=== PATIENT | female | born 1955 | race Caucasian/White ===

== ENCOUNTER → 2017-11-14 07:07 | Outpatient (CLI) | payer OTHER, SELFPAY ==
[2017-11-14 09:30] LABS: Add Manual Diff / Slide Review NO; Basophils Percent Auto 1.2 % (0-2); Eosinophils Percent Auto 2.4 % (2-4); Hematocrit 40.5 % (36-46); Hemoglobin 13.7 g/dL (12.0-16.0); Lymphocytes Percent Auto 44.3 % (25-40); Mean Corpuscular HGB Conc 33.9 % (30-36); Mean Corpuscular Hemoglobin 31.8 PG (26-34); Mean Corpuscular Volume 93.9 fL (80-100); Monocytes Percent Auto 9.9 % (3-14); Neutrophils Absolute Auto 3200 /uL (3000-5900); Neutrophils Percent Auto 42.2 % (50-75); Platelet Count 89 X10^3/uL (150-400); Red Blood Cell Count 4.31 X10^6/uL (4.0-5.2); Red Cell Distribution Width 14.6 % (11.6-14.8); White Blood Cell Count 7.5 X10^3/uL (4.5-11.0)
== END ==
PROVIDERS: PCP Internal Medicine; Visit Provider Nurse Practitioner Gerontology
DX: D69.3 Immune thrombocytopenic purpura (principal)
CPT/HCPCS: 36415; 85025

== ENCOUNTER → 2017-11-21 07:10 | Outpatient (CLI) | payer OTHER, SELFPAY ==
[2017-11-21 07:42] LABS: Alanine Aminotransferase 25 IU/L (9-52); Aspartate Aminotransferase 16 IU/L (14-36); Cholesterol 161 mg/dL (140-199); HDL Cholesterol 64 mg/dL (40-60); LDL Cholesterol Calculated 83 mg/dL (<100); Triglycerides 72 mg/dL (35-150)
[2017-11-21 08:10] LABS: TSH w/ Reflex to FT4 0.77 uIU/mL (0.47-4.68)
[2017-11-21 12:47] LABS: BUN Creatinine Ratio 21.3 (6-22); Blood Urea Nitrogen 17 mg/dL (7-17); Calcium 9.2 mg/dL (8.4-10.2); Carbon Dioxide 26 mmol/L (22-32); Chloride 103 mmol/L (98-107); Estimated Glomerular Filt Rate > 60.0 mL/min (>60); Glucose 100 mg/dL (80-110); HEMOLYSIS < 15 (0-50); Potassium 4.6 mmol/L (3.4-5.1); Sodium 140 mmol/L (137-145)
== END ==
PROVIDERS: PCP Internal Medicine; Visit Provider Internal Medicine
DX: I10 Essential (primary) hypertension (principal); E78.00 Pure hypercholesterolemia, unspecified; E03.9 Hypothyroidism, unspecified
CPT/HCPCS: 36415; 80048; 80061; 84443; 84450; 84460

== ENCOUNTER → 2018-02-03 13:51 | Outpatient (CLI) | payer OTHER, SELFPAY ==
[2018-02-03 14:27] LABS: Add Manual Diff / Slide Review NO; Eosinophils Percent Auto 0.9 % (2-4); Hematocrit 40.5 % (36-46); Hemoglobin 13.7 g/dL (12.0-16.0); Lymphocytes Percent Auto 41.6 % (25-40); Mean Corpuscular HGB Conc 33.9 % (30-36); Mean Corpuscular Hemoglobin 32.4 PG (26-34); Mean Corpuscular Volume 95.5 fL (80-100); Monocytes Percent Auto 8.2 % (3-14); Neutrophils Absolute Auto 4100 /uL (3000-5900); Neutrophils Percent Auto 48.3 % (50-75); Red Blood Cell Count 4.24 X10^6/uL (4.0-5.2); Red Cell Distribution Width 14.2 % (11.6-14.8); White Blood Cell Count 8.5 X10^3/uL (4.5-11.0)
== END ==
PROVIDERS: Family Provider Internal Medicine; PCP Internal Medicine; Visit Provider Nurse Practitioner Gerontology
DX: D69.3 Immune thrombocytopenic purpura (principal)
CPT/HCPCS: 36415; 85025

== ENCOUNTER → 2018-03-25 11:11 | Outpatient (CLI) | payer OTHER, SELFPAY ==
--- NOTE | 2018-03-25 11:17 | DI.US.S_ITS ---
PROCEDURE: US CAROTID DOPPLER BI INDICATIONS: neck pain and C-V disease and smoker TECHNIQUE: Color and pulse Doppler interrogation was performed of both carotid systems, with image documentation and velocity measurements. COMPARISON: None. FINDINGS: Stenosis calculations are based on SRU (Society of Radiologists in Ultrasound) criteria. Right side: Brachial blood pressure: 110/74 mm Hg. Common carotid artery peak systolic velocity: 95 cm/sec. Internal carotid artery peak systolic velocity: 92 cm/sec. Internal carotid artery end diastolic velocity: 20 cm/sec. External carotid artery peak systolic velocity: 81 cm/sec. ICA/CCA peak systolic ratio: 1.0. Cordero scale imaging description: Minimal scattered plaque. Percent internal carotid artery stenosis: Less than 50%. Vertebral artery: Flow direction is antegrade. Left side: Brachial blood pressure: 113/76 mm Hg. Common carotid artery peak systolic velocity: 73 cm/sec. Internal carotid artery peak systolic velocity: 109 cm/sec. Internal carotid artery end diastolic velocity: 40 cm/sec. External carotid artery peak systolic velocity: 69 cm/sec. ICA/CCA peak systolic ratio: 1.5. Cordero scale imaging description: Minimal scattered plaque. Percent internal carotid artery stenosis: Less than. Vertebral artery: Flow direction is antegrade. IMPRESSION: Less than 50% bilateral internal carotid artery stenosis. Dictated by: Rupesh Weber [facility] Interpreted: Harsh Ochoa MD on 03/25/2018 at 14:40 Approved by: Harsh Ochoa M.D. on 03/25/2018 at 17:18
== END ==
PROVIDERS: PCP Internal Medicine; Visit Provider Family Medicine
DX: I65.23 Occlusion and stenosis of bilateral carotid arteries (principal); R51 Headache; M54.2 Cervicalgia; F17.200 Nicotine dependence, unspecified, uncomplicated
CPT/HCPCS: 93880

== ENCOUNTER → 2018-03-26 14:43 | Outpatient (CLI) | payer OTHER, SELFPAY ==
--- NOTE | 2018-03-26 14:48 | DI.MRI.S_ITS ---
PROCEDURE: MR HEAD/BRAIN WO CON INDICATIONS: headaches TECHNIQUE: Non-contrast axial T1 spin echo, axial T2 fast spin echo, sagittal and axial FLAIR, coronal T2 fast spin echo, axial gradient echo, axial diffusion and ADC through the brain. COMPARISON: [facility], MR, MR ANGIO HEAD WO CON, 03/26/2018, 14:55. CT, HEAD WITHOUT CONTRAST, 02/10/2007, 10:38. FINDINGS: Image quality: Excellent. CSF spaces: Ventricles appear symmetric in size and shape. Basal cisterns are patent. No extra-axial fluid collections. Brain: No intracranial bleeds or mass effects. There is cerebral volume loss for age. There are periventricular and deep white matter chronic small vessel ischemic changes. Brainstem demonstrates patchy areas of hyperintensity within the [place]. Diffusion-weighted images show no acute ischemic insults. No chronic ischemic insults. Normal intravascular flow voids are present. Skull and face: Calvarial bone marrow is normal in signal. Orbits are normal. Sinuses: Sinuses and mastoids are clear. IMPRESSION: 1. No acute intracranial process. 2. Mild atrophy and chronic microvascular ischemic changes. Dictated by: Patti Da Silva M.D. on 03/26/2018 at 15:38 Approved by: Patti Da Silva M.D. on 03/26/2018 at 15:40
--- NOTE | 2018-03-26 14:48 | DI.MRI.S_ITS ---
PROCEDURE: MR ANGIO HEAD WO CON INDICATIONS: headaches TECHNIQUE: Noncontrast axial 3-D [id number] MR angiogram, with 3-dimensional maximum intensity projection (MIP) reformats of the internal carotid arteries and posterior circulation then performed. COMPARISON: [facility], , MR HEAD/BRAIN WO CON, 03/26/2018, 15:05. FINDINGS: Image quality: Excellent. Anterior circulation: Intracranial internal carotid arteries demonstrate normal size and intraluminal flow signal. The flow within the paired anterior cerebral arteries is normal and symmetric. The flow within the middle cerebral arteries is normal and symmetric. The anterior communicating artery is seen. No stenoses, occlusions, or aneurysms. Posterior circulation: Visualized portions of the vertebral arteries demonstrate normal caliber, and join to form a normal appearing basilar artery. The flow within the posterior cerebral arteries is normal and symmetric. No stenoses, occlusions, or aneurysms. IMPRESSION: 1.No areas of hemodynamically significant stenosis, vascular occlusion or aneurysmal dilation within the anterior or posterior circulation. Dictated by: Patti Da Silva M.D. on 03/26/2018 at 15:40 Approved by: Patti Da Silva M.D. on 03/26/2018 at 15:41
== END ==
PROVIDERS: PCP Internal Medicine; Visit Provider Family Medicine
DX: R51 Headache (principal)
CPT/HCPCS: 70544; 70551

== ENCOUNTER → 2018-04-28 14:51 | Outpatient (CLI) | payer OTHER, SELFPAY ==
[2018-04-28 16:14] LABS: Add Manual Diff / Slide Review NO; Eosinophils Percent Auto 1.2 % (2-4); Hematocrit 39.9 % (36-46); Hemoglobin 13.2 g/dL (12.0-16.0); Lymphocytes Percent Auto 36.9 % (25-40); Mean Corpuscular HGB Conc 33.1 % (30-36); Mean Corpuscular Hemoglobin 30.9 PG (26-34); Mean Corpuscular Volume 93.2 fL (80-100); Monocytes Percent Auto 7.6 % (3-14); Neutrophils Absolute Auto 4700 /uL (3000-5900); Neutrophils Percent Auto 53.3 % (50-75); Red Blood Cell Count 4.28 X10^6/uL (4.0-5.2); Red Cell Distribution Width 13.6 % (11.6-14.8); White Blood Cell Count 8.9 X10^3/uL (4.5-11.0)
[2018-04-28 16:48] LABS: Platelet Count 79 X10^3/uL (150-400)
== END ==
PROVIDERS: PCP Internal Medicine; Visit Provider Nurse Practitioner Gerontology
DX: D69.3 Immune thrombocytopenic purpura (principal)
CPT/HCPCS: 36415; 85025

== ENCOUNTER → 2018-07-14 06:56 | Outpatient (CLI) | payer OTHER, SELFPAY ==
[2018-07-14 08:50] LABS: Cholesterol 124 mg/dL (140-199); HDL Cholesterol 53 mg/dL (40-60); LDL Cholesterol Calculated 55 mg/dL (<100); Triglycerides 80 mg/dL (35-150)
== END ==
PROVIDERS: PCP Internal Medicine; Visit Provider Internal Medicine Cardiovascular Disease
DX: E78.00 Pure hypercholesterolemia, unspecified (principal)
CPT/HCPCS: 36415; 80061

== ENCOUNTER → 2018-07-31 17:01 | Outpatient (CLI) | payer OTHER, SELFPAY ==
--- NOTE | 2018-08-05 07:56 | P.PFT.S_ITS ---
Pulmonary Function Test Referral & Results Date Patient Seen: 07/31/18 Requesting provider: Ti Gates Indication: Wheezing Results: The spirometry demonstrates an FVC of 2.60 L which is 87% of predicted. The FEV1 was measured at 1.59 L which is 69% of predicted. The FEV1/FVC ratio was 61 which is 79% of predicted. Following the administration of bronchodilator there was a 10% improvement in FEV1 and a 25% improvement in FEF 25-75%. Lung volumes show an SVC of 2.59 L which is 92% of predicted. The diffusing capacity was measured at 15.96 which is 74% of predicted. No hemoglobin value was provided, so no correction for potential anemia could be made, if appropriate. The maximum voluntary ventilation was reduced Interpretation: This study demonstrates mild to moderate obstructive lung disease with some limited evidence of benefit following bronchodilator administration based on 10% improvement in FEV1 and 25% improvement in FEF 25- 75% Lung volumes are normal Mild reduction in diffusing capacity suggests some element of disease at the capillary alveolar level Compared to PFTs performed in July 2014, current study shows slight decline in FEV1 otherwise numbers are essentially unchanged including minimal reduction in diffusing capacity
== END ==
PROVIDERS: PCP Internal Medicine; Visit Provider Hospitalist
DX: R06.09 Other forms of dyspnea (principal)
CPT/HCPCS: 94060; 94726; 94729

== ENCOUNTER → 2018-08-03 14:49 | Outpatient (CLI) | payer OTHER, SELFPAY ==
[2018-08-03 16:02] LABS: Basophils Absolute Auto 100 /uL (0-100); Eosinophils Absolute Auto 100 /uL (0-450); Eosinophils Percent Auto 1.1 % (2-4); Hematocrit 40.2 % (36-46); Hemoglobin 13.4 g/dL (12.0-16.0); Lymphocytes Absolute Auto 3300 /uL (1100-4500); Lymphocytes Percent Auto 36.6 % (25-40); Mean Corpuscular HGB Conc 33.2 % (30-36); Mean Corpuscular Hemoglobin 31.3 PG (26-34); Mean Corpuscular Volume 94.2 fL (80-100); Monocytes Absolute Auto 800 /uL (0-900); Monocytes Percent Auto 8.8 % (3-14); Neutrophils Absolute Auto 4700 /uL (1500-7000); Neutrophils Percent Auto 52.5 % (50-75); Platelet Count 82 X10^3/uL (150-400); Red Blood Cell Count 4.27 X10^6/uL (4.0-5.2); Red Cell Distribution Width 13.5 % (11.6-14.8)
[2018-08-03 16:09] LABS: Add Manual Diff / Slide Review SLIDE REVIEW
--- NOTE | 2018-08-03 16:35 | PC.NURSE ---
labs stable, sees provider 08/04
[2018-08-03 17:38] LABS: RBC Morphology Normal Morphology
== END ==
PROVIDERS: PCP Internal Medicine; Visit Provider Nurse Practitioner Gerontology
DX: D69.3 Immune thrombocytopenic purpura (principal)
CPT/HCPCS: 36415; 85025

== ENCOUNTER → 2019-05-25 18:55 | Outpatient (ROUT) | payer OTHER, SELFPAY ==
[2019-05-25 19:28] LABS: Alanine Aminotransferase 19 IU/L (<35); Aspartate Aminotransferase 24 IU/L (14-36); Cholesterol 140 mg/dL (140-199); HDL Cholesterol 49 mg/dL (40-60); LDL Cholesterol Calculated 66 mg/dL (<100); Triglycerides 124 mg/dL (35-150)
[2019-05-25 19:59] LABS: TSH w/ Reflex to FT4 1.23 uIU/mL (0.47-4.68)
== END ==
PROVIDERS: Family Provider Internal Medicine; PCP Internal Medicine; Visit Provider Internal Medicine
DX: E03.9 Hypothyroidism, unspecified (principal); E78.00 Pure hypercholesterolemia, unspecified
CPT/HCPCS: 80061; 84443; 84450; 84460

== ENCOUNTER → 2019-06-25 14:37 | Outpatient (CLI) | payer OTHER, SELFPAY | PROVIDERS: PCP Internal Medicine; Visit Provider Internal Medicine | DX: M81.0 Age-related osteoporosis without current pathological fracture (principal); Z78.0 Asymptomatic menopausal state; E07.9 Disorder of thyroid, unspecified; F17.200 Nicotine dependence, unspecified, uncomplicated | CPT/HCPCS: 77080 ==

== ENCOUNTER → 2019-06-26 09:03 | Outpatient (CLI) | payer OTHER, SELFPAY ==
--- NOTE | 2019-06-26 | DI.MG.S_ITS ---
BILATERAL DIGITAL SCREENING MAMMOGRAM 3D/2D WITH CAD: 06/26/2019 CLINICAL: Routine screening. Comparison is made to exams dated: 05/16/2016 mammogram, 09/17/2013 mammogram - [facility], and 10/16/2005 mammogram - [facility]. There are scattered fibroglandular elements in both breasts. Current study was also evaluated with a Computer Aided Detection (CAD) system. No significant masses, calcifications, or other findings are seen in either breast. There has been no significant interval change. IMPRESSION: NEGATIVE There is no mammographic evidence of malignancy. A 1 year screening mammogram is recommended. This exam was interpreted at Station ID: [id number]. NOTE: For mammograms, a report in lay terms will be sent to the patient. Approximately 15% of breast malignancies will not be visualized mammographically. In the management of a palpable breast mass, a negative mammogram must not discourage biopsy of a clinically suspicious lesion. Electronically Signed By: Cash gage/dominique:06/28/2019 13:43:18 letter sent: Normal Exam ACR BI-RADS Category 1: Negative [id number]
== END ==
PROVIDERS: PCP Internal Medicine; Visit Provider Internal Medicine
DX: Z12.31 Encounter for screening mammogram for malignant neoplasm of breast (principal)
CPT/HCPCS: 77063; 77067

== ENCOUNTER → 2019-07-26 07:26 | Outpatient (CLI) | payer OTHER, SELFPAY ==
[2019-07-26 07:42] LABS: Add Manual Diff / Slide Review NO; Basophils Absolute Auto 100 /uL (0-100); Basophils Percent Auto 1.1 % (0-2); Eosinophils Absolute Auto 100 /uL (0-450); Eosinophils Percent Auto 1.8 % (2-4); Hematocrit 41.5 % (36-46); Lymphocytes Absolute Auto 3100 /uL (1100-4500); Lymphocytes Percent Auto 37.4 % (25-40); Mean Corpuscular HGB Conc 33.7 % (30-36); Mean Corpuscular Hemoglobin 31.6 PG (26-34); Mean Corpuscular Volume 93.6 fL (80-100); Monocytes Absolute Auto 700 /uL (0-900); Monocytes Percent Auto 8.4 % (3-14); Neutrophils Absolute Auto 4300 /uL (1500-7000); Neutrophils Percent Auto 51.3 % (50-75); Red Blood Cell Count 4.43 X10^6/uL (4.0-5.2); Red Cell Distribution Width 13.9 % (11.6-14.8); White Blood Cell Count 8.3 X10^3/uL (4.5-11.0)
[2019-07-26 08:28] LABS: Platelet Count 17 X10^3/uL (150-400); Platelet Estimate Adequate on smear
[2019-07-26 08:29] LABS: Platelet Clumps 3
[2019-07-26 08:30] LABS: Platelet Morphology Comment LARGE PLATELETS
== END ==
PROVIDERS: PCP Internal Medicine
DX: D69.3 Immune thrombocytopenic purpura (principal)
CPT/HCPCS: 36415; 85025

== ENCOUNTER → 2019-08-17 17:26 | Outpatient (CLI) | payer OTHER, SELFPAY ==
[2019-08-17 18:14] LABS: Alanine Aminotransferase 17 IU/L (<35); Albumin 4.4 g/dL (3.5-5.0); Albumin Globulin Ratio 1.6 (1.0-2.8); Alkaline Phosphatase 78 U/L (38-126); Aspartate Aminotransferase 21 IU/L (14-36); BUN Creatinine Ratio 17.5 (6-22); Bilirubin Total 0.7 mg/dL (0.2-1.3); Blood Urea Nitrogen 14 mg/dL (7-17); Calcium 9.8 mg/dL (8.4-10.2); Carbon Dioxide 24 mmol/L (22-32); Chloride 106 mmol/L (98-107); Estimated Glomerular Filt Rate > 60.0 mL/min (>60); Globulin 2.8 g/dL (1.7-4.1); Glucose 99 mg/dL (80-110); HEMOLYSIS < 15 (0-50); Sodium 141 mmol/L (137-145); Total Protein 7.2 g/dL (6.3-8.2)
[2019-08-17 18:24] LABS: Basophils Absolute Auto 100 /uL (0-100); Basophils Percent Auto 0.9 % (0-2); Eosinophils Absolute Auto 100 /uL (0-450); Eosinophils Percent Auto 1.4 % (2-4); Hematocrit 39.1 % (36-46); Hemoglobin 13.3 g/dL (12.0-16.0); Lymphocytes Absolute Auto 3500 /uL (1100-4500); Mean Corpuscular Hemoglobin 31.9 PG (26-34); Mean Corpuscular Volume 93.8 fL (80-100); Monocytes Absolute Auto 700 /uL (0-900); Monocytes Percent Auto 8.3 % (3-14); Neutrophils Absolute Auto 4100 /uL (1500-7000); Neutrophils Percent Auto 48.4 % (50-75); Red Blood Cell Count 4.17 X10^6/uL (4.0-5.2); Red Cell Distribution Width 13.9 % (11.6-14.8); White Blood Cell Count 8.5 X10^3/uL (4.5-11.0)
[2019-08-17 18:45] LABS: Platelet Count 44 X10^3/uL (150-400)
[2019-08-17 18:46] LABS: Add Manual Diff / Slide Review SLIDE REVIEW; Platelet Estimate Decreased on smear; RBC Morphology Normal Morphology
== END ==
PROVIDERS: PCP Internal Medicine; Referring Provider Internal Medicine Hematology & Oncology; Visit Provider Internal Medicine Hematology & Oncology
DX: D69.3 Immune thrombocytopenic purpura (principal)
CPT/HCPCS: 36415; 80053; 82784; 84155; 85025; 86334

== ENCOUNTER → 2019-08-20 10:54 | Outpatient (CLI) | payer OTHER, SELFPAY ==
--- NOTE | 2019-08-20 10:56 | DI.CT.S_ITS ---
PROCEDURE: CT ABDOMEN PELVIS W CON INDICATIONS: ITP, left sided abdominal pain TECHNIQUE: After the administration of intravenous contrast, 5 mm thick sections acquired from the diaphragm to the symphysis. 5 mm coronal and sagittal reformats were acquired. For radiation dose reduction, the following was used: automated exposure control, adjustment of mA and/or kV according to patient size. COMPARISON: [facility], CT, ABDOMEN/PELVIS WITH CONTRAST, 02/05/2017, 9:07. FINDINGS: Image quality: Excellent. ABDOMEN: Lung bases: Lung bases are clear. Heart size is normal. Solid organs: Liver is normal in size and enhancement. Mild steatosis is present. Gallbladder is unremarkable. Biliary system is non dilated. Pancreas enhances normally. Spleen is normal in size and enhancement. No adrenal nodules. Kidneys demonstrate normal size and enhancement, without hydronephrosis. Peritoneum and bowel: Bowel loops demonstrate normal wall thickness and caliber. No free fluid or air. Moderate colonic diverticula are present. No associated inflammatory change. There remains a mildly thickened appearance of the sigmoid colon, unchanged. Nodes and vessels: No retroperitoneal or mesenteric adenopathy by size criteria. Aorta and inferior vena cava are normal in size. Miscellaneous: No ventral hernias. PELVIS: Genitourinary: Bladder wall thickness is normal. Miscellaneous: No inguinal hernias or adenopathy. Bones: No suspicious bony lesions. No vertebral body compression fractures. IMPRESSION: 1. Prominent diverticula without associated inflammatory change. Appearance is most consistent with diverticulosis. 2. Mild hepatic steatosis. Dictated by: Patti Da Silva M.D. on 08/20/2019 at 17:43 Approved by: Patti Da Silva M.D. on 08/20/2019 at 17:45
== END ==
PROVIDERS: PCP Internal Medicine; Referring Provider Internal Medicine Hematology & Oncology; Visit Provider Internal Medicine Hematology & Oncology
DX: D69.3 Immune thrombocytopenic purpura (principal); R10.9 Unspecified abdominal pain; K76.0 Fatty (change of) liver, not elsewhere classified
CPT/HCPCS: 74177; Q9967

== ENCOUNTER 2019-08-24 08:34 | Emergency (ER) | payer OTHER, SELFPAY ==
[2019-08-24 08:44] VITALS: BP 113/79; PULSE 90; RESP 13; TEMP 36.3; O2SAT 97
--- NOTE | 2019-08-24 08:56 | ED_ITS ---
HPI - Ear Problem General Chief complaint: Ear Stated complaint: cold/blood in right ear Mode of arrival: Ambulatory History of Present Illness HPI Narrative: 64-year-old woman with a history of ITP, hypertension,hyperlipidemia, presents with 24 hours of upper respiratory symptoms without of fever and right ear pain with a slight amount of blood appreciated from the right ear canal. No dyspnea, chest pain, abdominal pain, dysuria, diarrhea, nausea, vomiting. Related Data Home Medications Medication Instructions Recorded Confirmed NITROGLYCERIN (Nitrostat) 0.4 mg SUBLINGUAL PRN #0 03/20/10 04/01/18 levothyroxine 0.088 mg PO QDAY #0 02/01/16 04/01/18 acetaminophen 325 mg PO PRN #0 08/19/17 04/01/18 aspirin 81 mg tablet,delayed 81 mg PO DAILY 10/23/17 04/01/18 release cholecalciferol (vitamin D3) 50 1,000 unit PO DAILY 10/23/17 04/01/18 mcg (2,000 unit) capsule gabapentin 300 mg capsule 300 mg PO PRN PRN 03/03/18 04/01/18 omeprazole magnesium [Prilosec OTC] 08/04/18 rosuvastatin 08/04/18 calcium carbonate [Calcium 600] 600 mg PO DAILY 08/17/19 08/17/19 cyanocobalamin (vitamin B-12) mcg 08/17/19 [Vitamin B-12] Previous Rx's Medication Instructions Recorded benzonatate [Tessalon Perles] 100 mg PO BID-TID PRN #20 cap 08/24/19 Allergies Allergy/AdvReac Type Severity Reaction Status Date / Time codeine [CODEINE] Allergy Unknown Verified 04/01/18 13:01 morphine [MORPHINE] Allergy Unknown Verified 04/01/18 13:01 Penicillins [PENICILLINS] Allergy Unknown Verified 04/01/18 13:01 atorvastatin [ATORVASTATIN] AdvReac Unknown Verified 04/01/18 13:01 simvastatin [SIMVASTATIN] AdvReac Unknown Verified 04/01/18 13:01 Review of Systems Review of Systems Narrative: All systems reviewed and are unremarkable except as noted in HPI and below Patient History Medical History (Updated 08/24/19 @ 09:13 by Marely Ramos MD) Hyperlipidemia (Acute) Hypertension (Acute) Idiopathic thrombocytopenia purpura (Acute) Social History Smoking Status: Current every day smoker Smoking Status: Current every day smoker Substance Use Type: does not use Exam Narrative Exam Narrative: General: Healthy appearing, in no acute distress. Able to give a complete and coherent history. Well-nourished well-developed HEENT: Moist mucous membranes, normal sclera with reactive pupils, mild tenderness of the right maxillary sinus. Right tympanic membrane from 12-3 has an erythematous blush over it with some slight retraction without overt signs of infection there is no blood in the canal and no active bleeding or discharge, left tympanic membrane is unremarkable Neck: supple Respiratory: Lungs are clear to auscultation, no wheezing no rales no rhonchi. Full and symmetrical air movement Cardiac: Regular rate and rhythm no murmurs no bruits Abdomen: Soft nontender good bowel tones, no flank pain Skin: Warm and dry, no rashes Neurologic: Grossly neurologically intact with no obvious asymmetries or a bnormalities Extremities: No trauma, well perfused Psych: Cooperative, appropriate insight and affect Initial Vital Signs Initial Vital Signs: Vital Signs Temperature 97.3 F L 08/24/19 08:44 Pulse Rate 90 08/24/19 08:44 Respiratory Rate 13 08/24/19 08:44 Blood Pressure 113/79 08/24/19 08:44 Pulse Oximetry 97 08/24/19 08:44 Course Vital Signs Vital signs: Vital Signs - 8 hr 08/24/19 08:44 Temperature 97.3 F L Pulse Rate 90 Respiratory Rate 13 Blood Pressure 113/79 Pulse Oximetry 97 Medical Decision Making MDM Narrative Medical decision making narrative: URI without signs of bacterial superinfection. Safe for home discharge with symptomatic management Discharge Plan Departure Patient Disposition: Home Clinical Impression: Acute upper respiratory infection Instructions: DI for Viral Upper Respiratory Infection -- Adult Activity Restrictions/Additional Instructions: Thank you for coming in. A sorry that you not feeling well. I think that your 100% correct that this is just a cold. We talked about using Tylenol to help with the aches and pains, Tessalon to help control cough and buying the real Sudafed (from behind pharmacy counter) to help with congestion. I would also encourage you to look in to saline nasal wash options to prevent problems with the sinus congestion developing into an actual sinusitis. [facility] If you find that you are getting worse, worsening respiratory symptoms, feeling significantly short of breath, having palpitations, dramatically elevated fevers or new symptoms in your ears or sinuses it is perfectly appropriate to follow- up with your primary care physician or return to the emergency room for re- evaluation. Prescriptions: New benzonatate [Tessalon Perles] 100 mg capsule 100 mg PO BID-TID PRN (Reason: cough) Qty: 20 RF: 0 No Action aspirin [Adult Aspirin Regimen] 81 mg tablet,delayed release (DR/EC) 81 mg PO DAILY RF: 0 cholecalciferol (vitamin D3) 2,000 unit capsule 1,000 unit PO DAILY RF: 0 NITROGLYCERIN (Nitrostat) 0.4 mg Sublingual PRN Qty: 0 RF: 0 levothyroxine 88 MCG tablet 0.088 mg PO QDAY Qty: 0 RF: 0 acetaminophen 325 MG tablet 325 mg PO PRNQty: 0 RF: 0 Prilosec OTC 20 mg Tablet,Delayed Release (Dr/Ec) RF: 0 rosuvastatin 40 mg Tablet RF: 0 cyanocobalamin (vitamin B-12) [Vitamin B-12] 1,000 mcg Tablet RF: 0 calcium carbonate [Calcium 600] 600 mg calcium (1,500 mg) Tablet 600 mg PO DAILY RF: 0 gabapentin 300 mg capsule 300 mg PO PRN PRN (Reason: Pain (Scale Score 1-3)) RF: 0 Referrals: Fabiola Heath MD [Primary Care Provider] -
== END 2019-08-24 09:25 | disposition home or self-care (01) ==
PROVIDERS: Emergency Provider Emergency Medicine; PCP Internal Medicine
DX: J06.9 Acute upper respiratory infection, unspecified (principal); I10 Essential (primary) hypertension; E78.5 Hyperlipidemia, unspecified
CPT/HCPCS: 99281

== ENCOUNTER → 2019-10-26 12:39 | Outpatient (CLI) | payer OTHER, SELFPAY ==
[2019-10-26 12:55] LABS: Add Manual Diff / Slide Review NO; Basophils Absolute Auto 100 /uL (0-100); Basophils Percent Auto 1.3 % (0-2); Eosinophils Absolute Auto 200 /uL (0-450); Eosinophils Percent Auto 1.6 % (2-4); Hematocrit 42.5 % (36-46); Hemoglobin 14.1 g/dL (12.0-16.0); Lymphocytes Absolute Auto 4400 /uL (1100-4500); Lymphocytes Percent Auto 44.1 % (25-40); Mean Corpuscular HGB Conc 33.1 % (30-36); Mean Corpuscular Hemoglobin 31.2 PG (26-34); Mean Corpuscular Volume 94.2 fL (80-100); Monocytes Absolute Auto 900 /uL (0-900); Monocytes Percent Auto 9.6 % (3-14); Neutrophils Absolute Auto 4300 /uL (1500-7000); Neutrophils Percent Auto 43.4 % (50-75); Red Blood Cell Count 4.51 X10^6/uL (4.0-5.2); Red Cell Distribution Width 13.7 % (11.6-14.8); White Blood Cell Count 9.9 X10^3/uL (4.5-11.0)
[2019-10-26 13:16] LABS: RBC Morphology Normal Morphology
[2019-10-26 13:25] LABS: Alanine Aminotransferase 20 IU/L (<35); Albumin 4.4 g/dL (3.5-5.0); Albumin Globulin Ratio 1.5 (1.0-2.8); Alkaline Phosphatase 77 U/L (38-126); Aspartate Aminotransferase 22 IU/L (14-36); BUN Creatinine Ratio 20.5 (6-22); Bilirubin Total 0.9 mg/dL (0.2-1.3); Blood Urea Nitrogen 16 mg/dL (7-17); Carbon Dioxide 25 mmol/L (22-32); Chloride 105 mmol/L (98-107); Estimated Glomerular Filt Rate > 60.0 mL/min (>60); Globulin 2.9 g/dL (1.7-4.1); Glucose 100 mg/dL (80-110); HEMOLYSIS < 15 (0-50); Potassium 4.3 mmol/L (3.4-5.1); Sodium 138 mmol/L (137-145); Total Protein 7.3 g/dL (6.3-8.2)
== END ==
PROVIDERS: PCP Internal Medicine; Referring Provider Internal Medicine Hematology & Oncology; Visit Provider Internal Medicine Hematology & Oncology
DX: D69.3 Immune thrombocytopenic purpura (principal)
CPT/HCPCS: 36415; 80053; 85025

== ENCOUNTER 2019-12-09 07:10 | Emergency (ER) | payer OTHER, SELFPAY ==
[2019-12-09 07:17] VITALS: BP 121/87; PULSE 110; RESP 16; TEMP 36.9; O2SAT 95; BMI 28.5
--- NOTE | 2019-12-09 08:02 | ED.ABDPAIN ---
HPI - Abdominal Pain General Chief Complaint: Abdominal Pain Stated Complaint: lower abdominal pain Time Seen by Provider: 12/09/19 07:32 Source: patient Mode of arrival: Ambulatory Limitations: no limitations History of Present Illness HPI narrative: Patient is a 64-year-old female with history of ITP and ovarian cyst presenting with left lower quadrant pain. She said she noticed some pain eat yesterday but nothing she could not tolerate however this morning around 2:00 a.m. it got to be quite significant her pain was uncontrolled with Tylenol. She denies any nausea or vomiting MD complaint: abdominal pain Onset (ago): hour(s) Pain Consistency: constant Location: LLQ Quality: stabbing Radiation: none Migration to: no migration Relieving factors: nothing Exacerbating factors: nothing Related Data Home Medications Medication Instructions Recorded Confirmed NITROGLYCERIN (Nitrostat) 0.4 mg SUBLINGUAL PRN #0 03/20/10 09/16/19 levothyroxine 0.088 mg PO QDAY #0 02/01/16 09/16/19 acetaminophen 325 mg PO PRN PRN #0 08/19/17 09/16/19 cholecalciferol (vitamin D3) 50 4,000 unit PO DAILY 10/23/17 09/16/19 mcg (2,000 unit) capsule rosuvastatin 40 mg DAILY 08/04/18 09/16/19 calcium carbonate [Calcium 600] 600 mg PO DAILY 08/17/19 09/16/19 cyanocobalamin (vitamin B-12) 1,000 mcg DAILY 08/17/19 09/16/19 [Vitamin B-12] Previous Rx's Medication Instructions Recorded ciprofloxacin HCl [Cipro] 500 mg PO Q12H #14 tab 12/09/19 metronidazole [Flagyl] 500 mg PO Q8H #21 tab 12/09/19 sulfamethoxazole-trimethoprim 1 tab PO Q12H #20 tab 12/09/19 [Bactrim DS] Allergies Allergy/AdvReac Type Severity Reaction Status Date / Time codeine [CODEINE] Allergy Unknown Verified 09/04/19 09:20 morphine [MORPHINE] Allergy Unknown Verified 09/04/19 09:20 Penicillins [PENICILLINS] Allergy Unknown Verified 09/04/19 09:20 atorvastatin [ATORVASTATIN] AdvReac Unknown Verified 09/04/19 09:20 simvastatin [SIMVASTATIN] AdvReac Unknown Verified 09/04/19 09:20 ciprofloxacin AdvReac Verified 09/16/19 13:08 Review of Systems Review of Systems Narrative: GENERAL: Denies chills, fatigue, malaise, fever, sweats, travel HEENT: Denies sinus pain, ear pain, sore throat, difficulty swallowing, neck pain RESPIRATORY: Denies dyspnea, cough, wheezing, hemoptysis, sputum. CARDIOVASCULAR: Denies chest pain, palpitations, orthopnea, edema GASTROINTESTINAL: See HPI : Denies dysuria, frequency, incontinence, hematuria, urinary retention, flank pain. MUSCULOSKELETAL: Denies weakness, joint pain, or bony pain SKIN: No rash, no erythema, no pruritus NEUROLOGIC: Denies weakness, dizziness, headache, numbness, change in speech, confusion PSYCHIATRIC: No concerning psychosocial issues. 12 point review of systems is negative except for those stated above and HPI Patient History Medical History Hyperlipidemia (Acute) Hypertension (Acute) Idiopathic thrombocytopenia purpura (Acute) Social History Smoking Status: Current every day smoker Smoking Status: Current every day smoker Substance Use Type: does not use Exam Initial Vital Signs Initial Vital Signs: Vital Signs Temperature 98.4 F 12/09/19 07:17 Pulse Rate 110 H 12/09/19 07:17 Respiratory Rate 16 12/09/19 07:17 Blood Pressure 121/87 12/09/19 07:17 Pulse Oximetry 95 12/09/19 07:17 GENERAL: Well-appearing, well-nourished and in no acute distress. HEENT: Head atraumatic,EOMI, pupils reactive CARDIOVASCULAR: Regular rate and rhythm without murmurs, rubs or gallops. RESPIRATORY: Breath sounds equal bilaterally, no wheezes rales or rhonchi. ABDOMEN: Soft, left lower quadrant pain no guarding no rebound EXTREMITIES: Normal range of motion, no clubbing or edema. Neurovascularly intact NEUROLOGICAL: Alert and oriented x4.Normal gait and speech. SKIN: Warm, dry, no laceration, no petechiae, no rashes or lesions. Course Orders Ordered: ED Orders 12/09/19 08:00 Complete Blood Count AUTO DIFF Stat Comprehensive Metabolic Panel Stat Lipase Stat 12/09/19 09:12 CT abdomen pelvis w con Stat 12/09/19 09:45 Urine Culture Stat Urine Microscopic Stat Discontinued Medications Ketorolac Tromethamine (Toradol) 15 mg IV NOW ONE Stop: 12/09/19 07:59 Last Admin: 12/09/19 08:09 Dose: 15 mg Documented by: YADIRA Vital Signs Vital signs: Vital Signs - 8 hr 12/09/19 07:17 12/09/19 09:30 12/09/19 11:27 Temperature 98.4 F Pulse Rate 110 H 69 60 Respiratory Rate 16 16 17 Blood Pressure 121/87 Blood Pressure [Left Arm] 124/75 118/76 Pulse Oximetry 95 93 98 MDM - Abdominal Pain Lab Data Attestation: I reviewed the patient's lab results. Result diagrams: 12/09/19 08:00 12/09/19 08:00 Labs: Lab Results 12/09/19 12/09/19 12/09/19 Range/Units 08:00 08:00 09:45 WBC 12.0 H (4.5-11.0) X10^3/uL RBC 4.05 (4.0-5.2) X10^6/uL Hgb 12.8 (12.0-16.0) g/dL Hct 37.5 (36-46) % MCV 92.7 (80-100) fL MCH 31.6 (26-34) PG MCHC 34.1 (30-36) % RDW 13.8 (11.6-14.8) % Plt Count TNP Neut % (Auto) 73.9 (50-75) % Lymph % (Auto) 16.4 L (25-40) % [place] % (Auto) 8.5 (3-14) % Eos % (Auto) 0.5 L (2-4) % Baso % (Auto) 0.7 (0-2) % Neut # (Auto) 8900 H (9581-4758) /uL Lymph # (Auto) 2000 (0697-6104) /uL [place] # (Auto) 1000 H (0-900) /uL Eos # (Auto) 100 (0-450) /uL Baso # (Auto) 100 (0-100) /uL RBC Morphology Normal morphology Sodium 137 (137-145) mmol/L Potassium 4.4 (3.4-5.1) mmol/L Chloride 106 (98-107) mmol/L Carbon Dioxide 26 (22-32) mmol/L BUN 13 (7-17) mg/dL Creatinine 0.76 (0.52-1.04) mg/dL Estimated GFR > 60.0 (>60) mL/min BUN/Creatinine Ratio 17.1 (6-22) Glucose 103 (80-110) mg/dL Calcium 9.5 (8.4-10.2) mg/dL Total Bilirubin 0.9 (0.2-1.3) mg/dL AST 19 (14-36) IU/L ALT 16 (<35) IU/L Alkaline Phosphatase 73 (38-126) U/L Total Protein 6.7 (6.3-8.2) g/dL Albumin 4.0 (3.5-5.0) g/dL Globulin 2.7 (1.7-4.1) g/dL Albumin/Globulin Ratio 1.5 (1.0-2.8) Lipase 48 (23-300) U/L Urine RBC 1-5/hpf (0-5/HPF) Urine WBC 0-1/hpf (0-5/HPF) Urine Bacteria Many (>30) H (None) Ur Culture Indicated? Specimen cultured Point of care testing: Urine Dip Bedside Urine Glucose Negative Bedside Urine Bilirubin - Negative Bedside Urine Ketone - Negative Urine Specific [place] 1.010 Bedside Urine Occult Blood ++ Bedside Urine pH 7.0 Bedside Urine Protein - Negative Bedside Urine Urobilinogen - Negative Bedside Urine Nitrite + Positive Bedside Urine Leukocytes - Negative Esterase Imaging Data CT scan - abdomen/pelvis: Radiologist's Impression: PROCEDURE: CT ABDOMEN PELVIS W CON INDICATIONS: left lower quad pain x 3 days TECHNIQUE: After the administration of oral and intravenous contrast, 5 mm thick sections acquired from the diaphragms to the symphysis. 5 mm thick coronal and sagittal reformats were performed. For radiation dose reduction, the following was used: automated exposure control, adjustment of mA and/or kV according to patient size. COMPARISON: [facility], CT, CT ABDOMEN PELVIS W CON, 08/20/2019, 11:58. [facility], CT, ABDOMEN/PELVIS WITH CONTRAST, 02/05/2017, 9:07. [facility], CT, CHEST/ABD/PEL WITH CONTRAST, 01/18/2014, 8:54. FINDINGS: Image quality: Diagnostic. ABDOMEN: Lung bases: Lung bases are clear. Heart size is normal. Solid organs: Liver is normal in size and enhancement. Gallbladder is not enlarged or inflamed, but is not adequately characterized on CT. Biliary system is non-dilated. Pancreas enhances normally. Spleen is normal in size and enhancement. No adrenal nodules. Kidneys are normal in size and enhancement, without hydronephrosis. Peritoneum and bowel: The stomach and small bowel are within normal limits. No significant dilatation of small bowel loops is evident. A moderate amount of residual stool is identified within the colon. Distal colonic diverticulosis is identified involving the sigmoid colon, predominately. There is focal wall thickening involving the sigmoid colon within the region of diverticulosis with mild edema within the adjacent mesentery (image 32, series 4). No free fluid, loculated fluid collection or free air is evident within the abdomen. Nodes and vessels: No retroperitoneal or mesenteric adenopathy. Aorta and inferior vena cava are normal in caliber. There is aortic atherosclerosis. Bones: No acute fracture or suspicious osseous lesion is evident. PELVIS: Genitourinary: The bladder is decompressed and subsequently not adequately evaluated. The uterus is surgically absent. The ovaries are not identified and may either be surgically absent or atrophic. Miscellaneous: No inguinal hernias or adenopathy. No free fluid, loculated fluid collection or air is present within the pelvis. Bones: No suspicious bony lesions. No acute pelvic fractures are identified.. IMPRESSION: 1. Focal wall thickening of the sigmoid colon with adjacent diverticulosis most likely represents early sigmoid diverticulitis. However, adherent stool to the wall could potentially result in this appearance and clinical correlation is recommended. 2. Possible constipation. No bowel obstruction. 3. No abscess or free fluid. Dictated by: Giovanni Flores M.D. on 12/09/2019 at 8:37 MDM Narrative Medical decision making narrative: Patient has mild leukocytosis CT confirms diverticulitis. She has anaphylaxis to penicillin and says Cipro causes a tendinopathy. She is prescribed Bactrim for her diverticulitis. Discharge Plan Departure Patient Disposition: Home Clinical Impression: Diverticulitis Discharge Date/Time: 12/09/19 12:22 Instructions: DI for Diverticulitis Activity Restrictions/Additional Instructions: *You have been diagnosed with diverticulitis *What to do: Increase diet as tolerated be sure to stay hydrated *Continue to take medications as directed Bactrim 1 tablet twice a day for 10 days Tylenol 1000 mg every 6 hours if needed for pain do not exceed more than 4000 mg in 24 hours *Follow up with your primary care provider in 2-3 days *Return to ER if you should have increasing pain bloody stool fevers or any new, worsening or concerning symptoms Prescriptions: New ciprofloxacin HCl [Cipro] 500 mg tablet 500 mg PO Q12H Qty: 14 RF: 0 metronidazole [Flagyl] 500 mg tablet 500 mg PO Q8H Qty: 21 RF: 0 sulfamethoxazole-trimethoprim [Bactrim DS] 800-160 mg tablet 1 tab PO Q12H Qty: 20 RF: 0 No Action cholecalciferol (vitamin D3) 2,000 unit capsule 4,000 unit PO DAILY RF: 0 NITROGLYCERIN (Nitrostat) 0.4 mg Sublingual PRN Qty: 0 RF: 0 levothyroxine 88 MCG tablet 0.088 mg PO QDAY Qty: 0 RF: 0 acetaminophen 325 MG tablet 325 mg PO PRN PRN (Reason: Pain (Scale Score 4-6)) Qty: 0 RF: 0 rosuvastatin 40 mg Tablet 40 mg DAILY RF: 0 cyanocobalamin (vitamin B-12) [Vitamin B-12] 1,000 mcg Tablet 1,000 mcg DAILY RF: 0 calcium carbonate [Calcium 600] 600 mg calcium (1,500 mg) Tablet 600 mg PO DAILY RF: 0 Referrals: Fabiola Heath MD [Primary Care Provider] -
[2019-12-09] MEDS: KETOROLAC 60 MG/2 ML VIAL 15 MG IV (08:09)
[2019-12-09 08:19] LABS: Basophils Absolute Auto 100 /uL (0-100); Basophils Percent Auto 0.7 % (0-2); Eosinophils Absolute Auto 100 /uL (0-450); Hemoglobin 12.8 g/dL (12.0-16.0); Mean Corpuscular Hemoglobin 31.6 PG (26-34); Monocytes Absolute Auto 1000 /uL (0-900); Neutrophils Percent Auto 73.9 % (50-75)
[2019-12-09 08:23] LABS: Alanine Aminotransferase 16 IU/L (<35); Albumin Globulin Ratio 1.5 (1.0-2.8); Alkaline Phosphatase 73 U/L (38-126); Aspartate Aminotransferase 19 IU/L (14-36); BUN Creatinine Ratio 17.1 (6-22); Bilirubin Total 0.9 mg/dL (0.2-1.3); Blood Urea Nitrogen 13 mg/dL (7-17); Calcium 9.5 mg/dL (8.4-10.2); Carbon Dioxide 26 mmol/L (22-32); Chloride 106 mmol/L (98-107); Estimated Glomerular Filt Rate > 60.0 mL/min (>60); Globulin 2.7 g/dL (1.7-4.1); Glucose 103 mg/dL (80-110); HEMOLYSIS < 15 (0-50); Lipase 48 U/L (23-300); Potassium 4.4 mmol/L (3.4-5.1); Sodium 137 mmol/L (137-145); Total Protein 6.7 g/dL (6.3-8.2)
[2019-12-09 08:25] LABS: Eosinophils Percent Auto 0.5 % (2-4); Hematocrit 37.5 % (36-46); Lymphocytes Absolute Auto 2000 /uL (1100-4500); Lymphocytes Percent Auto 16.4 % (25-40); Mean Corpuscular HGB Conc 34.1 % (30-36); Mean Corpuscular Volume 92.7 fL (80-100); Monocytes Percent Auto 8.5 % (3-14); Neutrophils Absolute Auto 8900 /uL (1500-7000); Red Blood Cell Count 4.05 X10^6/uL (4.0-5.2); Red Cell Distribution Width 13.8 % (11.6-14.8)
[2019-12-09 08:26] LABS: Add Manual Diff / Slide Review SLIDE REVIEW
[2019-12-09 08:43] LABS: RBC Morphology Normal Morphology
--- NOTE | 2019-12-09 09:12 | DI.CT.S_ITS ---
PROCEDURE: CT ABDOMEN PELVIS W CON INDICATIONS: left lower quad pain x 3 days TECHNIQUE: After the administration of oral and intravenous contrast, 5 mm thick sections acquired from the diaphragms to the symphysis. 5 mm thick coronal and sagittal reformats were performed. For radiation dose reduction, the following was used: automated exposure control, adjustment of mA and/or kV according to patient size. COMPARISON: Located [facility], CT, CT ABDOMEN PELVIS W CON, 08/20/2019, 11:58. Located Within [facility], CT, ABDOMEN/PELVIS WITH CONTRAST, 02/05/2017, 9:07. Located Within [facility], CT, CHEST/ABD/PEL WITH CONTRAST, 01/18/2014, 8:54. FINDINGS: Image quality: Diagnostic. ABDOMEN: Lung bases: Lung bases are clear. Heart size is normal. Solid organs: Liver is normal in size and enhancement. Gallbladder is not enlarged or inflamed, but is not adequately characterized on CT. Biliary system is non-dilated. Pancreas enhances normally. Spleen is normal in size and enhancement. No adrenal nodules. Kidneys are normal in size and enhancement, without hydronephrosis. Peritoneum and bowel: The stomach and small bowel are within normal limits. No significant dilatation of small bowel loops is evident. A moderate amount of residual stool is identified within the colon. Distal colonic diverticulosis is identified involving the sigmoid colon, predominately. There is focal wall thickening involving the sigmoid colon within the region of diverticulosis with mild edema within the adjacent mesentery (image 32, series 4). No free fluid, loculated fluid collection or free air is evident within the abdomen. Nodes and vessels: No retroperitoneal or mesenteric adenopathy. Aorta and inferior vena cava are normal in caliber. There is aortic atherosclerosis. Bones: No acute fracture or suspicious osseous lesion is evident. PELVIS: Genitourinary: The bladder is decompressed and subsequently not adequately evaluated. The uterus is surgically absent. The ovaries are not identified and may either be surgically absent or atrophic. Miscellaneous: No inguinal hernias or adenopathy. No free fluid, loculated fluid collection or air is present within the pelvis. Bones: No suspicious bony lesions. No acute pelvic fractures are identified.. IMPRESSION: 1. Focal wall thickening of the sigmoid colon with adjacent diverticulosis most likely represents early sigmoid diverticulitis. However, adherent stool to the wall could potentially result in this appearance and clinical correlation is recommended. 2. Possible constipation. No bowel obstruction. 3. No abscess or free fluid. Dictated by: Giovanni Flores M.D. on 12/09/2019 at 8:37 Approved by: Giovanni Flores M.D. on 12/09/2019 at 8:45
[2019-12-09 09:30] VITALS: BP 124/75; PULSE 69; RESP 16; O2SAT 93
[2019-12-09 10:02] LABS: Bacteria Urine Many (>30); Culture Indicated Urine Specimen Cultured; RBC Urine 1-5/HPF (0-5/HPF); WBC Urine 0-1/HPF (0-5/HPF)
[2019-12-09 11:27] VITALS: BP 118/76; PULSE 60; RESP 17; O2SAT 98
== END 2019-12-09 12:22 | disposition home or self-care (01) ==
PROVIDERS: Emergency Provider Emergency Medicine; PCP Internal Medicine
DX: K57.92 Diverticulitis of intestine, part unspecified, without perforation or abscess without bleeding (principal); I10 Essential (primary) hypertension; E78.5 Hyperlipidemia, unspecified
CPT/HCPCS: 36415; 74177; 80053; 81003; 81015; 83690; 85025; 87077; 87086; 87186; 96374; 99284; 99285; J1885; Q9967

== ENCOUNTER → 2020-02-08 15:40 | Outpatient (CLI) | payer OTHER, SELFPAY ==
[2020-02-08 16:29] LABS: Add Manual Diff / Slide Review NO; Basophils Absolute Auto 100 /uL (0-100); Basophils Percent Auto 1.1 % (0-2); Eosinophils Absolute Auto 100 /uL (0-450); Eosinophils Percent Auto 0.8 % (2-4); Hematocrit 40.8 % (36-46); Hemoglobin 13.6 g/dL (12.0-16.0); Lymphocytes Absolute Auto 3700 /uL (1100-4500); Lymphocytes Percent Auto 37.9 % (25-40); Mean Corpuscular HGB Conc 33.4 % (30-36); Mean Corpuscular Hemoglobin 31.2 PG (26-34); Mean Corpuscular Volume 93.6 fL (80-100); Monocytes Absolute Auto 700 /uL (0-900); Monocytes Percent Auto 6.7 % (3-14); Neutrophils Absolute Auto 5300 /uL (1500-7000); Neutrophils Percent Auto 53.5 % (50-75); Platelet Count 54 X10^3/uL (150-400); Red Blood Cell Count 4.36 X10^6/uL (4.0-5.2); Red Cell Distribution Width 13.9 % (11.6-14.8); White Blood Cell Count 9.9 X10^3/uL (4.5-11.0)
[2020-02-08 17:02] LABS: Alanine Aminotransferase 17 IU/L (<35); Albumin 4.4 g/dL (3.5-5.0); Albumin Globulin Ratio 1.8 (1.0-2.8); Alkaline Phosphatase 83 U/L (38-126); Aspartate Aminotransferase 22 IU/L (14-36); BUN Creatinine Ratio 16.5 (6-22); Bilirubin Total 0.8 mg/dL (0.2-1.3); Blood Urea Nitrogen 13 mg/dL (7-17); Calcium 10.1 mg/dL (8.4-10.2); Carbon Dioxide 26 mmol/L (22-32); Chloride 104 mmol/L (98-107); Estimated Glomerular Filt Rate > 60.0 mL/min (>60); Globulin 2.5 g/dL (1.7-4.1); Glucose 98 mg/dL (80-110); HEMOLYSIS < 15 (0-50); Potassium 4.1 mmol/L (3.4-5.1); Sodium 139 mmol/L (137-145); Total Protein 6.9 g/dL (6.3-8.2)
[2020-02-08 17:31] LABS: TSH w/ Reflex to FT4 1.19 uIU/mL (0.47-4.68)
== END ==
PROVIDERS: PCP Internal Medicine; Referring Provider Nurse Practitioner; Visit Provider Nurse Practitioner
DX: R06.09 Other forms of dyspnea (principal); I25.10 Atherosclerotic heart disease of native coronary artery without angina pectoris; F17.200 Nicotine dependence, unspecified, uncomplicated
CPT/HCPCS: 36415; 80053; 84443; 85025

== ENCOUNTER → 2020-07-07 12:45 | Outpatient (CLI) | payer MEDICARE, SELFPAY ==
[2020-07-07] MEDS: COVID-19 VACC #1, MRNA(MOD) 100 MCG/0.5 ML VIAL IM (12:59)
== END ==
PROVIDERS: PCP Internal Medicine; Visit Provider Internal Medicine
DX: Z23 Encounter for immunization (principal)
CPT/HCPCS: 0011A; 91301

== ENCOUNTER → 2020-08-04 13:29 | Outpatient (CLI) | payer MEDICARE, SELFPAY ==
[2020-08-04] MEDS: COVID-19 VACC #2, MRNA(MOD) 100 MCG/0.5 ML VIAL IM (13:45)
== END ==
PROVIDERS: PCP Internal Medicine; Visit Provider Internal Medicine
DX: Z23 Encounter for immunization (principal)
CPT/HCPCS: 0012A; 91301

== ENCOUNTER → 2021-02-15 07:00 | Outpatient (CLI) | payer MEDICARE, OTHER, SELFPAY ==
[2021-02-15 08:32] LABS: Basophils Absolute Auto 100 /uL (0-100); Basophils Percent Auto 1.4 % (0-2); Eosinophils Absolute Auto 200 /uL (0-450); Eosinophils Percent Auto 2.3 % (2-4); Hemoglobin 13.6 g/dL (12.0-16.0); Lymphocytes Absolute Auto 3200 /uL (1100-4500); Lymphocytes Percent Auto 46.1 % (25-40); Mean Corpuscular HGB Conc 33.1 % (30-36); Mean Corpuscular Hemoglobin 31.2 PG (26-34); Mean Corpuscular Volume 94.2 fL (80-100); Monocytes Absolute Auto 700 /uL (0-900); Monocytes Percent Auto 10.2 % (3-14); Neutrophils Absolute Auto 2800 /uL (1500-7000); Red Blood Cell Count 4.35 X10^6/uL (4.0-5.2); Red Cell Distribution Width 13.1 % (11.6-14.8); White Blood Cell Count 6.9 X10^3/uL (4.5-11.0)
[2021-02-15 08:35] LABS: Add Manual Diff / Slide Review SLIDE REVIEW
[2021-02-15 08:46] LABS: Alanine Aminotransferase 17 IU/L (<35); Albumin 4.2 g/dL (3.5-5.0); Albumin Globulin Ratio 1.8 (1.0-2.8); Alkaline Phosphatase 78 U/L (38-126); Aspartate Aminotransferase 22 IU/L (14-36); BUN Creatinine Ratio 16.9 (6-22); Bilirubin Total 0.8 mg/dL (0.2-1.3); Blood Urea Nitrogen 14 mg/dL (7-17); Calcium 9.6 mg/dL (8.4-10.2); Carbon Dioxide 28 mmol/L (22-32); Chloride 107 mmol/L (98-107); Cholesterol 123 mg/dL (140-199); Estimated Glomerular Filt Rate > 60.0 mL/min (>60); Globulin 2.3 g/dL (1.7-4.1); Glucose 97 mg/dL (80-110); HDL Cholesterol 56 mg/dL (40-60); HEMOLYSIS < 15 (0-50); LDL Cholesterol Calculated 49 mg/dL (<100); Potassium 4.5 mmol/L (3.4-5.1); Sodium 140 mmol/L (137-145); Total Protein 6.5 g/dL (6.3-8.2); Triglycerides 92 mg/dL (35-150)
[2021-02-15 10:02] LABS: RBC Morphology Normal Morphology
[2021-02-15 10:03] LABS: Platelet Count 77 X10^3/uL (150-400)
== END ==
PROVIDERS: PCP Internal Medicine; Referring Provider Internal Medicine Cardiovascular Disease; Visit Provider Internal Medicine Cardiovascular Disease
DX: I25.10 Atherosclerotic heart disease of native coronary artery without angina pectoris (principal); E78.00 Pure hypercholesterolemia, unspecified
CPT/HCPCS: 36415; 80053; 80061; 85025

== ENCOUNTER → 2021-02-15 13:29 | Outpatient (CLI) | payer MEDICARE, OTHER, SELFPAY ==
--- NOTE | 2021-02-15 13:33 | DI.CT.S_ITS ---
PROCEDURE: CT KIDNEY URETER BLADDER (KUB) INDICATIONS: suspicious for kidney stone TECHNIQUE: Axial sections were acquired from the lung bases to the pubic symphysis. Coronal and sagittal reformats were performed. For radiation dose reduction, the following was used: automated exposure control, adjustment of mA and/or kV according to patient size. COMPARISON:[facility], CT, KIDNEY/ URETER/BLADDER, 08/13/2017, 9:47. FINDINGS: Image quality: Excellent. Lung bases: Lung bases are clear. Heart size is normal. Solid organs: Liver: The liver has no mass or intrahepatic biliary ductal dilatation. Biliary: The gallbladder has no gallstones, pericholecystic fluid, gallbladder wall thickening, or surrounding inflammatory change. Pancreas: The pancreas has no mass or ductal dilatation. There is no surrounding inflammation. Spleen: Normal size. There are no masses. Adrenals: No hypertrophy or nodules. Kidneys: No obstructive calculus or hydronephrosis. No solid mass. No cystic mass. Peritoneum and bowel: The distal esophagus and stomach are normal. The small bowel has a normal caliber and appearance. The terminal ileum is normal. The large bowel has diverticulosis with no evidence of diverticulitis. The appendix is not definitively visualized; however there are no secondary findings to suggest acute appendicitis. No free fluid or air. High density within the right lower quadrant is likely material within the lumen. Nodes and vessels: No retroperitoneal or mesenteric adenopathy by size criteria. Aorta and inferior vena cava are normal in size. Miscellaneous: No abdominal wall mass or hernia. PELVIS: Genitourinary: The bladder has no wall thickening or mass. No bladder calcifications. Status post hysterectomy. Miscellaneous: No inguinal hernias or adenopathy. Bones: No suspicious bony lesions. No vertebral body compression fractures. IMPRESSION: 1. No kidney stones. 2. No acute abnormality of the abdomen or pelvis. 3. Diverticulosis without evidence of diverticulitis. Dictated by: Eric Gusman M.D. on 02/15/2021 at 15:40 Approved by: Eric Gusman M.D. on 02/15/2021 at 15:49
== END ==
PROVIDERS: PCP Internal Medicine; Referring Provider Internal Medicine Hematology & Oncology; Visit Provider Internal Medicine Hematology & Oncology
DX: R10.9 Unspecified abdominal pain (principal); R82.998 Other abnormal findings in urine; K57.30 Diverticulosis of large intestine without perforation or abscess without bleeding
CPT/HCPCS: 74176

== ENCOUNTER → 2021-08-14 07:20 | Outpatient (CLI) | payer MEDICARE, OTHER, SELFPAY ==
[2021-08-14 08:58] LABS: Alanine Aminotransferase 13 IU/L (<35); Albumin 4.1 g/dL (3.5-5.0); Albumin Globulin Ratio 1.7 (1.0-2.8); Alkaline Phosphatase 58 U/L (38-126); Aspartate Aminotransferase 18 IU/L (14-36); Blood Urea Nitrogen 18 mg/dL (7-17); Calcium 9.4 mg/dL (8.4-10.2); Carbon Dioxide 28 mmol/L (22-32); Chloride 107 mmol/L (98-107); Cholesterol 123 mg/dL (140-199); Estimated Glomerular Filt Rate > 60.0 mL/min (>60); Globulin 2.4 g/dL (1.7-4.1); Glucose 99 mg/dL (80-110); HDL Cholesterol 53 mg/dL (40-60); HEMOLYSIS < 15 (0-50); LDL Cholesterol Calculated 53 mg/dL (<100); Potassium 4.6 mmol/L (3.4-5.1); Sodium 139 mmol/L (137-145); Total Protein 6.5 g/dL (6.3-8.2); Triglycerides 86 mg/dL (35-150)
[2021-08-14 09:21] LABS: Free T3, Triiodothyronine Free 3.23 pg/mL (2.77-5.27); Free T4, Direct Thyroxine 1.45 ng/dL (0.78-2.19)
[2021-08-14 09:34] LABS: Thyroid Stimulating Hormone 0.678 uIU/mL (0.47-4.68)
== END ==
PROVIDERS: PCP Family Medicine; Referring Provider Family Medicine; Visit Provider Family Medicine
DX: E78.5 Hyperlipidemia, unspecified (principal); D69.3 Immune thrombocytopenic purpura; E89.0 Postprocedural hypothyroidism; I10 Essential (primary) hypertension
CPT/HCPCS: 36415; 80053; 80061; 84439; 84443; 84481

== ENCOUNTER → 2021-12-19 17:20 | Outpatient (CLI) | payer MEDICARE, OTHER, SELFPAY ==
[2021-12-19 18:10] LABS: Basophils Absolute Auto 100 /uL (0-100); Eosinophils Absolute Auto 200 /uL (0-450); Hematocrit 39.5 % (36-46); Hemoglobin 13.5 g/dL (12.0-16.0); Lymphocytes Absolute Auto 3800 /uL (1100-4500); Lymphocytes Percent Auto 41.5 % (25-40); Mean Corpuscular HGB Conc 34.2 % (30-36); Mean Corpuscular Hemoglobin 31.5 PG (26-34); Mean Corpuscular Volume 92.1 fL (80-100); Monocytes Absolute Auto 900 /uL (0-900); Monocytes Percent Auto 9.7 % (3-14); Neutrophils Absolute Auto 4200 /uL (1500-7000); Neutrophils Percent Auto 45.8 % (50-75); Platelet Count 49 X10^3/uL (150-400); Red Cell Distribution Width 13.9 % (11.6-14.8); White Blood Cell Count 9.2 X10^3/uL (4.5-11.0)
[2021-12-19 18:12] LABS: Add Manual Diff / Slide Review SLIDE REVIEW
[2021-12-19 18:33] LABS: RBC Morphology Normal Morphology
== END ==
PROVIDERS: PCP Family Medicine; Referring Provider Internal Medicine Hematology & Oncology; Visit Provider Internal Medicine Hematology & Oncology
DX: D69.3 Immune thrombocytopenic purpura (principal)
CPT/HCPCS: 36415; 85025

== ENCOUNTER → 2022-04-04 09:18 | Outpatient (CLI) | payer MEDICARE, OTHER, SELFPAY ==
[2022-04-04 12:30] LABS: COVID19 -Nasal RAPID Negative (Negative)
== END ==
PROVIDERS: PCP Family Medicine; Visit Provider Surgery
DX: Z20.822 Contact with and (suspected) exposure to COVID-19 (principal); Z01.812 Encounter for preprocedural laboratory examination
CPT/HCPCS: 87635; C9803

== ENCOUNTER 2022-04-05 06:36 | Day surgery (SDC) | payer MEDICARE, OTHER, SELFPAY ==
[2022-04-05 07:15] VITALS: BP 110/80; PULSE 106; RESP 16; TEMP 37; O2SAT 97; BMI 30.5
[2022-04-05] MEDS: LACTATED RINGERS 1,000 ML 42 ML IV (07:39)
--- NOTE | 2022-04-05 08:09 | P.HP_ITS ---
History of Present Illness History of Present Illness Chief complaint: SCREENING COLONOSCOPY Narrative: Ms. Burkett presents today for screening colonoscopy. Has ITP with thrombocytopenia. Her last colonoscopy was several years ago there was some barium involved she said ?it hurts? as far she knows no polyps were seen she has no family history of colon cancer she does struggle with occasional pain on her left lower side she denies bleeding in her bowel movements. She for the last several months has been having 4-7 bowel movements per day and passing just small carter. Her son has celiac disease. Otherwise she denies diarrhea or constipation. She has never tried a supplement. Her left lower quadrant pain she thinks is worse when she eats fresh vegetables salads or fruits and has therefore been avoiding them. She states she has had a history of being combative when waking up from anesthesia. She has had a thyroidectomy and an appendectomy. She is allergic to penicillin and has an anaphylactic reaction. Codeine morphine and adhesive give her itching. Patient History Medical History (Updated 04/05/22 @ 08:43 by Анна Villalpando MD) Caffeine addiction Diverticulitis Dry skin Frequent urination Hair thinning Hyperlipidemia Hypertension Idiopathic thrombocytopenia purpura Poor sleep hygiene Tobacco abuse counseling Urinary leakage Surgical History (Updated 04/05/22 @ 07:40 by Ricardo Parish RN) H/O hysterectomy with oophorectomy History of appendectomy History of thyroidectomy, subtotal Family & Social History Social History: household members spouse Tobacco & Substance use: Tobacco type cigarettes Smoking Status Current every day smoker Smoking packs per day 1 alcohol intake never Substance Use Type does not use Meds Home Medications and Allergies Home Medications Medication Instructions Recorded Confirmed Type NITROGLYCERIN (Nitrostat) 0.4 mg sublingual PRN ##0 03/20/10 04/05/22 History acetaminophen 325 mg tablet 325 mg PO PRN PRN Pain (Scale 08/19/17 04/05/22 History Score 4-6) ##0 cholecalciferol (vitamin D3) 50 4,000 unit PO DAILY 10/23/17 04/05/22 History mcg (2,000 unit) capsule rosuvastatin 40 mg tablet 40 mg DAILY 08/04/18 04/05/22 History calcium carbonate 600 mg calcium 1,200 mg PO DAILY 08/17/19 04/05/22 History (1,500 mg) tablet (Calcium) cyanocobalamin (vitamin B-12) 2,000 mcg DAILY 08/17/19 04/05/22 History 1,000 mcg tablet (Vitamin B-12) metoprolol succinate 25 mg 12.5 mg PO DAILY 07/05/21 04/05/22 History tablet,extended release 24 hr levothyroxine 88 mcg tablet 88 mcg PO DAILY #90 tabs 09/19/21 04/05/22 Rx sodium,potassium,mag sulfates 17.5 See Rx Instructions PO .COMPLEX 03/21/22 Rx gram-3.13 gram-1.6 gram oral soln #354 mL (Suprep Bowel Prep Kit) Allergies Allergy/AdvReac Type Severity Reaction Status Date / Time codeine [CODEINE] Allergy Unknown Verified 04/05/22 06:57 morphine [MORPHINE] Allergy Unknown Verified 04/05/22 06:57 Penicillins [PENICILLINS] Allergy Unknown Verified 04/05/22 06:57 atorvastatin [ATORVASTATIN] AdvReac Unknown Verified 04/05/22 06:57 simvastatin [SIMVASTATIN] AdvReac Unknown Verified 04/05/22 06:57 ciprofloxacin AdvReac Verified 04/05/22 06:57 Exam Vital Signs (past 8 hours): - 04/05/22 07:15 Temperature 98.6 F Pulse Rate 106 H Respiratory Rate 16 Blood Pressure 110/80 Pulse Oximetry 97 Oxygen Delivery Method Room Air Oxygen Delivery Method Room Air Const General: cooperative, healthy appearing and comfortable Orientation: alert, awake and oriented x3 Eyes General: appearance normal, both eyes and all related structures Neck Neck: normal visual inspection Resp Effort & Inspection: normal respiratory effort and able to speak in complete sentences Cardio Pulses: radial pulses present GI Palpation: soft and No tender Extrem General: normal to inspection Objective Labs Result Diagrams: 04/05/22 08:30 Assessment & Plan Assessment and plan (1) Screening for colon cancer: Status: Acute Plan Patient's last platelet count was 49. We will plan to draw another CBC today, contact heme/Onc for recommendations, and contact the blood bank to see if we can have platelets on hand. We will try to proceed if we are able to do so safely but at this time further information is required. Time Spent With Patient Critical Care time: I spent a total of [] minutes of critical care time on this patient's care today ; this time is exclusive of procedural time.
--- NOTE | 2022-04-05 08:43 | SUR.PREOP ---
CBC drawn and sent to lab per doctor's orders.
[2022-04-05 08:49] LABS: Add Manual Diff / Slide Review NO; Basophils Absolute Auto 100 /uL (0-100); Basophils Percent Auto 1.3 % (0-2); Eosinophils Absolute Auto 100 /uL (0-450); Eosinophils Percent Auto 0.8 % (2-4); Hematocrit 41.3 % (36-46); Hemoglobin 13.8 g/dL (12.0-16.0); Lymphocytes Absolute Auto 2200 /uL (1100-4500); Lymphocytes Percent Auto 30.5 % (25-40); Mean Corpuscular HGB Conc 33.4 % (30-36); Mean Corpuscular Hemoglobin 30.7 PG (26-34); Mean Corpuscular Volume 91.9 fL (80-100); Monocytes Absolute Auto 700 /uL (0-900); Monocytes Percent Auto 9.4 % (3-14); Neutrophils Absolute Auto 4100 /uL (1500-7000); Red Blood Cell Count 4.49 X10^6/uL (4.0-5.2); White Blood Cell Count 7.1 X10^3/uL (4.5-11.0)
--- NOTE | 2022-04-05 09:51 | SUR.PREOP ---
late entry: patient noted to have hx of ITP and low platelet count; Dr Villalpando wanting a CBC to confirm; CBC sent to lab; lab unable to provide accurate platelet count due to clumping. Notified Dr Villalpando. Dr Villalpando requesting platelet transfusion prior to colonoscopy. According to blood bank, platelets will have to be sent by pmo consultant from [place] to [place]. Patient will not be able to have colonoscopy completed until approximately 1500 today. Provided patient with all information and provided options of staying until 1500 today to complete colonoscopy and/or rescheduling. Patient desires to reschedule and have her platelet transfusion completed on an outpatient basis. Patient states that she always receives a platelet transfusion prior to any procedures due to ITP. Relayed all info to Dr Villalpando. Apologized profusely to patient. V/U. Patient discharged home in stable condition.
--- NOTE | 2022-04-16 10:46 | P.CALLCOV_ITS ---
Call Coverage Note Note Date of Patient Contact: 04/16/22 Time of Patient Contact: 10:47 Narrative of Care Provided: TELEPHONE CONVERSATION WITH DR. CA, hematology at [facility]. Dr. Ca is aware of Ms. Aurea Bukrett who is a known patient of his; he explains that Ms. Burkett usually has an adequate number of platelets for a colonoscopy. She had never had any major bleeding events per his record. The problem is with the lab, and that her platelets clump, rendering the normal means of counting platelets useless for her. The exact etiology of this is unclear, but he does not advise any additional treatments or transfusions before undergoing a colonoscopy. He agrees that she would benefit from colonoscopy, and that benefit likely outweighs the risk. He has recommended that we obtain a peripheral blood smear with pathology review for platelet count immediately prior to the procedure to confirm adequate platelet counts and then proceed with the colonoscopy. This will be arranged through our office.
== END 2022-04-05 06:40 | disposition home health service (06) ==
PROVIDERS: PCP Family Medicine; Referring Provider Surgery; Visit Provider Surgery
DX: Z12.11 Encounter for screening for malignant neoplasm of colon (principal); Z53.09 Procedure and treatment not carried out because of other contraindication
CPT/HCPCS: G0121; 36415; 85025

== ENCOUNTER → 2022-05-23 07:04 | Outpatient (CLI) | payer MEDICARE, OTHER, SELFPAY ==
[2022-05-23 08:15] LABS: Hematocrit 40.1 % (36-46); Hemoglobin 13.4 g/dL (12.0-16.0); Mean Corpuscular HGB Conc 33.5 % (30-36); Mean Corpuscular Volume 92.6 fL (80-100); Red Blood Cell Count 4.34 X10^6/uL (4.0-5.2); Red Cell Distribution Width 13.7 % (11.6-14.8); White Blood Cell Count 7.6 X10^3/uL (4.5-11.0)
[2022-05-23 08:25] LABS: Alanine Aminotransferase 17 IU/L (<35); Albumin 4.1 g/dL (3.5-5.0); Albumin Globulin Ratio 1.7 (1.0-2.8); Alkaline Phosphatase 95 U/L (38-126); Aspartate Aminotransferase 19 IU/L (14-36); BUN Creatinine Ratio 14.9 (6-22); Bilirubin Total 0.5 mg/dL (0.2-1.3); Blood Urea Nitrogen 11 mg/dL (7-17); Calcium 9.3 mg/dL (8.4-10.2); Carbon Dioxide 28 mmol/L (22-32); Chloride 107 mmol/L (98-107); Estimated Glomerular Filt Rate > 60 mL/min (>60); Globulin 2.4 g/dL (1.7-4.1); Glucose 95 mg/dL (80-110); HEMOLYSIS < 15 (0-50); Potassium 4.4 mmol/L (3.4-5.1); Sodium 140 mmol/L (137-145); Total Protein 6.5 g/dL (6.3-8.2)
[2022-05-23 09:35] LABS: Neutrophils Absolute Manual 4408 /uL (3000-5900); Total Cells Counted 100
[2022-05-23 09:37] LABS: Platelet Estimate Decreased on smear; RBC Morphology Normal Morphology
[2022-05-23 09:38] LABS: Platelet Count 67 X10^3/uL (150-400)
[2022-05-24 15:48] LABS: Free Kappa Lt Chains, Serum 15.2 mg/L (3.3-19.4); Free Lambda Lt Chains,Serum 9.8 mg/L (5.7-26.3)
[2022-05-27 14:46] LABS: Albumin 3.5 g/dL (2.9-4.4); Alpha-1-Globulin 0.3 g/dL (0.0-0.4); Alpha-2-Globulin 0.8 g/dL (0.4-1.0); Gamma Globulin 0.7 g/dL (0.4-1.8); Globulin Total 2.6 g/dL (2.2-3.9); Protein, Total 6.1 g/dL (6.0-8.5)
== END ==
PROVIDERS: Internal Medicine Hematology & Oncology; PCP Family Medicine; Referring Provider Surgery; Visit Provider Surgery
DX: D69.3 Immune thrombocytopenic purpura (principal)
CPT/HCPCS: 36415; 80053; 83883; 84155; 84165; 85025

== ENCOUNTER → 2022-05-30 14:56 | Outpatient (CLI) | payer MEDICARE, OTHER, SELFPAY ==
[2022-05-30 16:04] LABS: COVID19 -Nasal RAPID Negative (Negative)
== END ==
PROVIDERS: PCP Family Medicine; Referring Provider Surgery; Visit Provider Surgery
DX: Z01.812 Encounter for preprocedural laboratory examination (principal); Z20.822 Contact with and (suspected) exposure to COVID-19
CPT/HCPCS: 87635

== ENCOUNTER 2022-05-31 10:45 | Day surgery (SDC) | payer MEDICARE, OTHER, SELFPAY ==
--- NOTE | 2022-05-30 09:52 | SUR.PREOP ---
Spoke with patient this morning who has an appointment with Dr cOhoa regarding platelet count.
[2022-05-31 11:13] VITALS: BP 119/68; PULSE 98; RESP 16; TEMP 36.6; O2SAT 99; BMI 28.9
[2022-05-31] MEDS: LACTATED RINGERS 1,000 ML 200 ML IV (11:21)
--- NOTE | 2022-05-31 12:09 | P.HP_ITS ---
History of Present Illness History of Present Illness Date Patient Seen: 05/31/22 Time Patient Seen: 12:09 Chief complaint: SCREENING COLONOSCOPY Narrative: The patient presents for colorectal screening. Previous colonoscopy was normal many years ago. No personal or family history of colon cancer. No blood per rectum abdominal pain unexplained weight loss.. Patient History Medical History (Updated 05/31/22 @ 11:25 by Machelle Jordan, RN) Caffeine addiction Diverticulitis Dry skin Frequent urination Hair thinning Heart attack Hyperlipidemia Hypertension Idiopathic thrombocytopenia purpura Poor sleep hygiene Tobacco abuse counseling Urinary leakage Venous (peripheral) insufficiency Surgical History (Updated 05/31/22 @ 11:26 by Machelle Jordan, RN) H/O hysterectomy with oophorectomy History of appendectomy History of thyroidectomy, subtotal Hx of heart artery stent S/P right rotator cuff repair Family & Social History Social History: household members none Tobacco & Substance use: Tobacco type cigarettes Smoking Status Current every day smoker alcohol intake never Substance Use Type does not use Meds Home Medications and Allergies Home Medications Medication Instructions Recorded Confirmed Type NITROGLYCERIN (Nitrostat) 0.4 mg sublingual PRN ##0 03/20/10 05/31/22 History acetaminophen 325 mg tablet 325 mg PO PRN PRN Pain (Scale 08/19/17 05/31/22 History Score 4-6) ##0 cholecalciferol (vitamin D3) 50 4,000 unit PO DAILY 10/23/17 05/31/22 History mcg (2,000 unit) capsule rosuvastatin 40 mg tablet 40 mg DAILY 08/04/18 05/31/22 History calcium carbonate 600 mg calcium 1,200 mg PO DAILY 08/17/19 05/31/22 History (1,500 mg) tablet (Calcium) cyanocobalamin (vitamin B-12) 2,000 mcg DAILY 08/17/19 05/31/22 History 1,000 mcg tablet (Vitamin B-12) metoprolol succinate 25 mg 12.5 mg PO DAILY 07/05/21 05/31/22 History tablet,extended release 24 hr levothyroxine 88 mcg tablet 88 mcg PO DAILY #90 tabs 09/19/21 05/31/22 Rx Allergies Allergy/AdvReac Type Severity Reaction Status Date / Time amoxicillin [From Augmentin] Allergy Severe Anaphylaxis Verified 05/31/22 11:01 clavulanic acid Allergy Severe Anaphylaxis Verified 05/31/22 11:01 [From Augmentin] Penicillins [PENICILLINS] Allergy Severe Anaphylaxis Verified 05/31/22 11:01 morphine [MORPHINE] Allergy Intermediate Hives Verified 05/31/22 11:01 codeine [CODEINE] Allergy Mild Hives Verified 05/31/22 11:01 adhesive tape AdvReac Severe Blister Verified 05/31/22 11:01 ciprofloxacin AdvReac Severe Joint Pain Verified 05/31/22 11:01 atorvastatin [ATORVASTATIN] AdvReac Unknown Verified 04/05/22 06:57 simvastatin [SIMVASTATIN] AdvReac Unknown Verified 04/05/22 06:57 Exam Vital Signs (past 8 hours): - 05/31/22 11:13 Temperature 97.8 F Pulse Rate 98 H Respiratory Rate 16 Blood Pressure 119/68 Pulse Oximetry 99 Oxygen Delivery Method Room Air Oxygen Delivery Method Room Air Narrative Exam Narrative: General adult woman alert oriented no acute distress Assessment & Plan Assessment & Plan narrative: The patient requires colorectal screening and colonoscopy is recommended. Technical details were discussed. Risks, benefits, alternatives explained. Risks including but not limited to myocardial infarction, aspiration, bleeding, pain, missed lesion, incomplete examination, need for further radiographic studies, colonic perforation, and need for major abdominal surgery were discu ssed. All questions were answered to their satisfaction, and they are in agreement with this plan. Time Spent With Patient Critical Care time: I spent a total of [] minutes of critical care time on this patient's care today; this time is exclusive of procedural time.
--- NOTE | 2022-05-31 12:27 | PM.OP.COLON ---
Operative Date/Time/Diagnoses Date of procedure: 05/31/22 Time of procedure: 12:27 Pre-op diagnosis: Screening colonoscopy Post-op diagnosis: same Procedure & Clinicians Study performed: Aborted colonoscopy Same procedure as scheduled: Yes Indications: Screening colonoscopy Surgeon: Robby Champagne Procedure Notes Procedure in detail: The history and physical was performed/updated and the patient is ASA class is 2. The procedure was discussed in detail with the patient. Potential risks complications including infection, bleeding, missed diagnosis, perforation, need for surgery, and were explained. Their questions were answered and informed consent was obtained. Patient was brought to the procedure room and placed standard monitoring equipment. The patient's vital signs were monitored continuously throughout the entire procedure. Prior to starting time-out was performed. The patient was placed in the left lateral recumbent position. Procedural sedation was administered by anesthesia. Examination began with a thorough inspection of the perianal area there was no evidence of fissures, fistulae, external hemorrhoids or cutaneous malignancy. The colonoscopy scope was then placed into the anal canal and was advanced forward. Within the sigmoid colon at approximately 25 cm from the anal verge no further safe progress could be made despite multiple attempts at repositioning. Given the concern for perforation with further persistence the procedure was aborted Impression: Incomplete colonoscopy Post-procedure Plan for aftercare: Barium enema Disposition: same day surgery
[2022-05-31 12:31] VITALS: BP 96/67; PULSE 98; RESP 16; TEMP 36.6; O2SAT 95
[2022-05-31 13:35] VITALS: BP 101/68; PULSE 91; RESP 17; O2SAT 98
[2022-05-31 13:40] VITALS: BP 106/71; PULSE 84; RESP 17; TEMP 36.3; O2SAT 99
[2022-05-31 13:45] VITALS: BP 108/77; PULSE 80; RESP 18; TEMP 36.7; O2SAT 99
== END 2022-05-31 13:17 | disposition home or self-care (01) ==
PROVIDERS: PCP Family Medicine; Referring Provider Surgery; Visit Provider Surgery
PROC: 0DJD8ZZ Inspection of Lower Intestinal Tract, Via Natural or Artificial Opening Endoscopic (ICD-10-PCS; CPT 45378; principal; 2022-05-31 11:45)
DX: Z12.11 Encounter for screening for malignant neoplasm of colon (principal); Z53.09 Procedure and treatment not carried out because of other contraindication
CPT/HCPCS: G0121; J2704

== ENCOUNTER → 2022-07-12 07:43 | Outpatient (CLI) | payer MEDICARE, OTHER, SELFPAY ==
[2022-07-12 09:54] LABS: Basophils Absolute Auto 100 /uL (0-100); Basophils Percent Auto 1.6 % (0-2); Eosinophils Absolute Auto 200 /uL (0-450); Eosinophils Percent Auto 2.2 % (2-4); Hematocrit 40.1 % (36-46); Hemoglobin 13.5 g/dL (12.0-16.0); Lymphocytes Absolute Auto 3000 /uL (1100-4500); Lymphocytes Percent Auto 43.4 % (25-40); Mean Corpuscular HGB Conc 33.8 % (30-36); Mean Corpuscular Hemoglobin 31.2 PG (26-34); Mean Corpuscular Volume 92.5 fL (80-100); Monocytes Absolute Auto 800 /uL (0-900); Monocytes Percent Auto 11.2 % (3-14); Neutrophils Absolute Auto 2900 /uL (1500-7000); Neutrophils Percent Auto 41.6 % (50-75); Red Blood Cell Count 4.34 X10^6/uL (4.0-5.2); Red Cell Distribution Width 13.7 % (11.6-14.8); White Blood Cell Count 6.9 X10^3/uL (4.5-11.0)
[2022-07-12 10:05] LABS: Add Manual Diff / Slide Review SLIDE REVIEW
[2022-07-12 10:18] LABS: Alanine Aminotransferase 21 IU/L (<35); Albumin 4.1 g/dL (3.5-5.0); Albumin Globulin Ratio 1.5 (1.0-2.8); Alkaline Phosphatase 93 U/L (38-126); Aspartate Aminotransferase 21 IU/L (14-36); BUN Creatinine Ratio 19.5 (6-22); Bilirubin Total 0.9 mg/dL (0.2-1.3); Blood Urea Nitrogen 15 mg/dL (7-17); Carbon Dioxide 27 mmol/L (22-32); Chloride 105 mmol/L (98-107); Estimated Glomerular Filt Rate > 60 mL/min (>60); Globulin 2.8 g/dL (1.7-4.1); Glucose 102 mg/dL (80-110); HEMOLYSIS < 15 (0-50); Potassium 4.3 mmol/L (3.4-5.1); Sodium 141 mmol/L (137-145); Total Protein 6.9 g/dL (6.3-8.2)
[2022-07-12 10:28] LABS: RBC Morphology Normal Morphology
[2022-07-12 10:32] LABS: Platelet Count 71 X10^3/uL (150-400)
[2022-07-12 10:49] LABS: TSH w/ Reflex to FT4 0.74 uIU/mL (0.47-4.68)
== END ==
PROVIDERS: Internal Medicine Hematology & Oncology; PCP Family Medicine; Referring Provider Family Medicine; Visit Provider Family Medicine
DX: L65.9 Nonscarring hair loss, unspecified (principal); L85.3 Xerosis cutis; R53.83 Other fatigue; D69.3 Immune thrombocytopenic purpura
CPT/HCPCS: 36415; 80053; 84443; 85025

== ENCOUNTER → 2022-09-20 06:53 | Outpatient (CLI) | payer MEDICARE, OTHER, SELFPAY ==
[2022-09-20 09:03] LABS: Add Manual Diff / Slide Review NO; Basophils Absolute Auto 100 /uL (0-100); Basophils Percent Auto 1.3 % (0-2); Eosinophils Absolute Auto 200 /uL (0-450); Eosinophils Percent Auto 2.1 % (2-4); Hematocrit 40.9 % (36-46); Hemoglobin 13.7 g/dL (12.0-16.0); Lymphocytes Absolute Auto 3300 /uL (1100-4500); Lymphocytes Percent Auto 39.7 % (25-40); Mean Corpuscular HGB Conc 33.5 % (30-36); Mean Corpuscular Hemoglobin 31.2 PG (26-34); Mean Corpuscular Volume 93.1 fL (80-100); Monocytes Absolute Auto 800 /uL (0-900); Monocytes Percent Auto 9.4 % (3-14); Neutrophils Absolute Auto 3900 /uL (1500-7000); Neutrophils Percent Auto 47.5 % (50-75); Platelet Count 55 X10^3/uL (150-400); Red Blood Cell Count 4.39 X10^6/uL (4.0-5.2); White Blood Cell Count 8.2 X10^3/uL (4.5-11.0)
[2022-09-20 09:34] LABS: Alanine Aminotransferase 18 IU/L (<35); Albumin 3.9 g/dL (3.5-5.0); Albumin Globulin Ratio 1.6 (1.0-2.8); Alkaline Phosphatase 74 U/L (38-126); Aspartate Aminotransferase 19 IU/L (14-36); Bilirubin Total 0.9 mg/dL (0.2-1.3); Blood Urea Nitrogen 16 mg/dL (7-17); Calcium 9.2 mg/dL (8.4-10.2); Carbon Dioxide 28 mmol/L (22-32); Chloride 104 mmol/L (98-107); Cholesterol 125 mg/dL (140-199); Estimated Glomerular Filt Rate > 60 mL/min (>60); Globulin 2.4 g/dL (1.7-4.1); Glucose 93 mg/dL (80-110); HDL Cholesterol 59 mg/dL (40-60); HEMOLYSIS < 15 (0-50); LDL Cholesterol Calculated 45 mg/dL (<100); Potassium 4.5 mmol/L (3.4-5.1); Sodium 138 mmol/L (137-145); Total Protein 6.3 g/dL (6.3-8.2); Triglycerides 104 mg/dL (35-150)
== END ==
PROVIDERS: PCP Family Medicine; Referring Provider Internal Medicine Cardiovascular Disease; Visit Provider Internal Medicine Cardiovascular Disease
DX: I25.10 Atherosclerotic heart disease of native coronary artery without angina pectoris (principal); E78.00 Pure hypercholesterolemia, unspecified
CPT/HCPCS: 36415; 80053; 80061; 85025

== ENCOUNTER → 2022-12-27 06:59 | Outpatient (CLI) | payer MEDICARE, OTHER, SELFPAY | PROVIDERS: PCP Family Medicine; Referring Provider Dermatology; Visit Provider Dermatology | DX: D69.3 Immune thrombocytopenic purpura (principal); Z01.818 Encounter for other preprocedural examination; R89.8 Other abnormal findings in specimens from other organs, systems and tissues | CPT/HCPCS: 36415; 85049 ==

== ENCOUNTER → 2023-04-30 07:09 | Outpatient (CLI) | payer MEDICARE, OTHER, SELFPAY ==
[2023-04-30 07:26] LABS: Add Manual Diff / Slide Review NO; Basophils Absolute Auto 100 /uL (0-100); Basophils Percent Auto 1.3 % (0-2); Eosinophils Absolute Auto 200 /uL (0-450); Eosinophils Percent Auto 2.4 % (2-4); Hematocrit 41.2 % (36-46); Hemoglobin 13.8 g/dL (12.0-16.0); Lymphocytes Absolute Auto 3400 /uL (1100-4500); Lymphocytes Percent Auto 35.4 % (25-40); Mean Corpuscular HGB Conc 33.5 % (30-36); Mean Corpuscular Volume 92.6 fL (80-100); Monocytes Absolute Auto 900 /uL (0-900); Neutrophils Absolute Auto 5000 /uL (1500-7000); Neutrophils Percent Auto 51.9 % (50-75); Red Blood Cell Count 4.45 X10^6/uL (4.0-5.2); Red Cell Distribution Width 13.9 % (11.6-14.8); White Blood Cell Count 9.7 X10^3/uL (4.5-11.0)
== END ==
PROVIDERS: PCP Family Medicine; Referring Provider Internal Medicine Gastroenterology; Visit Provider Internal Medicine Gastroenterology
DX: D69.3 Immune thrombocytopenic purpura (principal)
CPT/HCPCS: 36415; 85025

== ENCOUNTER → 2023-05-07 07:17 | Outpatient (CLI) | payer MEDICARE, OTHER, SELFPAY ==
[2023-05-07 09:34] LABS: Basophils Absolute Auto 100 /uL (0-100); Eosinophils Absolute Auto 200 /uL (0-450); Eosinophils Percent Auto 1.6 % (2-4); Hematocrit 40.1 % (36-46); Hemoglobin 13.5 g/dL (12.0-16.0); Lymphocytes Absolute Auto 3100 /uL (1100-4500); Lymphocytes Percent Auto 26.3 % (25-40); Mean Corpuscular HGB Conc 33.6 % (30-36); Mean Corpuscular Volume 92.1 fL (80-100); Monocytes Absolute Auto 1100 /uL (0-900); Monocytes Percent Auto 9.2 % (3-14); Neutrophils Absolute Auto 7200 /uL (1500-7000); Neutrophils Percent Auto 61.9 % (50-75); Red Blood Cell Count 4.35 X10^6/uL (4.0-5.2); Red Cell Distribution Width 13.6 % (11.6-14.8); White Blood Cell Count 11.7 X10^3/uL (4.5-11.0)
[2023-05-07 10:19] LABS: Add Manual Diff / Slide Review SLIDE REVIEW
[2023-05-07 10:22] LABS: RBC Morphology Normal Morphology
== END ==
PROVIDERS: PCP Family Medicine; Referring Provider Nurse Practitioner; Visit Provider Nurse Practitioner
DX: D69.3 Immune thrombocytopenic purpura (principal)
CPT/HCPCS: 36415; 85025

== ENCOUNTER 2023-05-14 07:40 | Day surgery (SDC) | payer MEDICARE, OTHER, SELFPAY ==
[2023-05-14] MEDS: LACTATED RINGERS 1,000 ML 42 ML IV (07:54)
[2023-05-14 08:05] VITALS: BMI 29.6
[2023-05-14 08:14] VITALS: BP 115/77; PULSE 90; RESP 16; TEMP 36.7; O2SAT 97
--- NOTE | 2023-05-14 09:02 | PM.HP.1 ---
History of Present Illness History of Present Illness Date Patient Seen: 05/14/23 Chief complaint: Dx Colonoscopy Narrative: Incomplete colonoscopy with inability to pass the scope above 25 cm [facility] Medical History (Updated 07/11/22 @ 16:18 by Dena Beach MD) Venous (peripheral) insufficiency Heart attack Poor sleep hygiene Frequent urination Caffeine addiction Tobacco abuse counseling Diverticulitis Urinary leakage Hair thinning Dry skin Hyperlipidemia Hypertension Idiopathic thrombocytopenia purpura Surgical History (Updated 07/11/22 @ 16:18 by Dena Beach MD) S/P right rotator cuff repair Hx of heart artery stent History of appendectomy H/O hysterectomy with oophorectomy History of thyroidectomy, subtotal Social History household members: none Smoking Status: Current every day smoker alcohol intake: never substance use type: does not use Meds Home Medications and Allergies Home Medications Medication Instructions Recorded Confirmed Type NITROGLYCERIN (Nitrostat) 0.4 mg sublingual PRN ##0 03/20/10 05/14/23 History acetaminophen 325 mg tablet 325 mg PO PRN PRN Pain (Scale 08/19/17 05/14/23 History Score 4-6) ##0 cholecalciferol (vitamin D3) 50 4,000 unit PO DAILY 10/23/17 05/14/23 History mcg (2,000 unit) capsule rosuvastatin 40 mg tablet 40 mg DAILY 08/04/18 05/14/23 History calcium carbonate 600 mg calcium 1,200 mg PO DAILY 08/17/19 05/14/23 History (1,500 mg) tablet (Calcium) cyanocobalamin (vitamin B-12) 2,000 mcg DAILY 08/17/19 05/14/23 History 1,000 mcg tablet (Vitamin B-12) metoprolol succinate 25 mg 12.5 mg PO DAILY 07/05/21 05/14/23 History tablet,extended release 24 hr levothyroxine 88 mcg tablet 88 mcg PO DAILY #90 tabs 07/18/22 05/14/23 Rx Allergies Allergy/AdvReac Type Severity Reaction Status Date / Time amoxicillin [From Augmentin] Allergy Severe Anaphylaxis Verified 05/14/23 08:00 clavulanic acid Allergy Severe Anaphylaxis Verified 05/14/23 08:00 [From Augmentin] Penicillins [PENICILLINS] Allergy Severe Anaphylaxis Verified 05/14/23 08:00 morphine [MORPHINE] Allergy Intermediate Hives Verified 05/14/23 08:00 codeine [CODEINE] Allergy Mild Hives Verified 05/14/23 08:00 adhesive tape AdvReac Severe Blister Verified 05/14/23 08:00 ciprofloxacin AdvReac Severe Joint Pain Verified 05/14/23 08:00 atorvastatin [ATORVASTATIN] AdvReac Unknown Verified 05/14/23 08:00 simvastatin [SIMVASTATIN] AdvReac Unknown Verified 05/14/23 08:00 Exam Vital Signs (past 8 hours): - 05/14/23 08:14 Temperature 98.1 F Pulse Rate 90 Respiratory Rate 16 Blood Pressure 115/77 Pulse Oximetry 97 Oxygen Delivery Method Room Air Oxygen Delivery Method Room Air Narrative Exam Narrative: Oropharynx free of lesions Chest clear to auscultation percussion Cardiac exam reveals no S3 or murmur Assessment & Plan Assessment & Plan narrative: History of incomplete colonoscopy need for new attempt. Risks, benefits, alternatives have been explained.
--- NOTE | 2023-05-14 09:03 | PM.OP.COLON ---
Operative Date/Time/Diagnoses Date of procedure: 05/14/23 Pre-op diagnosis: See indication and findings Procedure & Clinicians Study performed: Colonoscopy Indications: Incomplete colonoscopy Surgeon: Lindsey Aguero Procedure Notes Procedure in detail: After informed consent was obtained the patient was placed in left lateral decubitus position. The video colonoscope was introduced the rectum slowly advanced cecum. Preparation was good. On slow withdrawal mucosa was carefully examined. The scope was removed. The patient tolerated procedure well. Blood loss none Complications none Sedation mac Findings 1. Difficult adhesed sigmoid colon consistent with previous bouts of diverticulitis. Eventually was able to be passed. Minimal inflammation present. 2. Otherwise negative colonoscopy to cecum. [place] should have some type of colorectal cancer screening in 10 years. I would probably not choose colonoscopy
[2023-05-14 09:35] VITALS: BP 110/73; PULSE 86; RESP 25; TEMP 36.9; O2SAT 94
[2023-05-14 09:40] VITALS: BP 106/70; PULSE 85; RESP 15; O2SAT 97
[2023-05-14 09:46] VITALS: BP 120/83; PULSE 84; RESP 19; TEMP 36.8; O2SAT 96
[2023-05-14 09:57] VITALS: BP 120/83; PULSE 79; RESP 18; O2SAT 96
== END 2023-05-14 10:05 | disposition home or self-care (01) ==
PROVIDERS: PCP Family Medicine; Referring Provider Internal Medicine Gastroenterology; Visit Provider Internal Medicine Gastroenterology
PROC: 0DJD8ZZ Inspection of Lower Intestinal Tract, Via Natural or Artificial Opening Endoscopic (ICD-10-PCS; CPT 45378; principal; 2023-05-14 09:00)
DX: Z12.11 Encounter for screening for malignant neoplasm of colon (principal)
CPT/HCPCS: G0121; J2704

== ENCOUNTER 2023-05-16 09:07 | Emergency (ER) | payer MEDICARE, OTHER, SELFPAY ==
[2023-05-16 09:11] VITALS: BP 122/75; PULSE 82; RESP 16; TEMP 36.6; O2SAT 98; BMI 29.6
--- NOTE | 2023-05-16 09:19 | DI.RAD.S_ITS ---
PROCEDURE: XR ABDOMEN 1V INDICATIONS: Colonoscopy 2 days ago with the abdominal pain TECHNIQUE: One view of the abdomen acquired. COMPARISON: None. FINDINGS: Surgical changes and devices: None. Bowel: Bowel gas pattern is normal. Scattered stool. No free air. Soft tissues: No suspicious abdominal calcifications. Visualized solid organ contours appear normal in size. Bones: No suspicious bony lesions. IMPRESSION: Unremarkable exam. Dictated by: Patti Da Silva M.D. on 05/16/2023 at 10:06 Approved by: Patti Da Silva M.D. on 05/16/2023 at 10:06
--- NOTE | 2023-05-16 09:36 | ED_ITS ---
HPI - General Adult General Chief complaint: Abdominal Pain Stated complaint: colonoscopy T-2, low ABD pain Time Seen by Provider: 05/16/23 09:19 Source: patient Mode of arrival: Ambulatory History of Present Illness HPI narrative: Patient is a 68-year-old female. Underwent a scheduled routine colonoscopy 2 days ago. She states that she thinks everything went appropriately. She did not think that there was any sort of biopsies that were taken. Since the colonoscopy she has had left lower quadrant abdominal pain that has been worsening. She does have history of diverticulitis she states this feels somewhat like that. No fevers. No vomiting. No chest pain. The discomfort does get somewhat better when she puts pressure on it but hurts quite a bit when she is up and walking. No urinary symptoms. Pain does not change with urination. Has had 1 small bowel movement since the colonoscopy. She states that the pain did not change of the bowel movements. She has had a hysterectomy and an appendectomy in the past Related Data Home Medications Medication Instructions Recorded Confirmed NITROGLYCERIN (Nitrostat) 0.4 mg sublingual PRN ##0 03/20/10 05/14/23 acetaminophen 325 mg tablet 325 mg PO PRN PRN Pain (Scale 08/19/17 05/14/23 Score 4-6) ##0 cholecalciferol (vitamin D3) 50 4,000 unit PO DAILY 10/23/17 05/14/23 mcg (2,000 unit) capsule rosuvastatin 40 mg tablet 40 mg DAILY 08/04/18 05/14/23 calcium carbonate 600 mg calcium 1,200 mg PO DAILY 08/17/19 05/14/23 (1,500 mg) tablet (Calcium) cyanocobalamin (vitamin B-12) 2,000 mcg DAILY 08/17/19 05/14/23 1,000 mcg tablet (Vitamin B-12) metoprolol succinate 25 mg 12.5 mg PO DAILY 07/05/21 05/14/23 tablet,extended release 24 hr Previous Rx's Medication Instructions Recorded levothyroxine 88 mcg tablet 88 mcg PO DAILY #90 tabs 07/18/22 metronidazole 500 mg tablet 500 mg PO TID 10 days #30 tabs 05/16/23 sulfamethoxazole 800 1 tab PO BID 10 days #20 tabs 05/16/23 mg-trimethoprim 160 mg tablet (Bactrim DS) Allergies Allergy/AdvReac Type Severity Reaction Status Date / Time amoxicillin [From Augmentin] Allergy Severe Anaphylaxis Verified 05/16/23 09:16 clavulanic acid Allergy Severe Anaphylaxis Verified 05/16/23 09:16 [From Augmentin] Penicillins [PENICILLINS] Allergy Severe Anaphylaxis Verified 05/16/23 09:16 morphine [MORPHINE] Allergy Intermediate Hives Verified 05/16/23 09:16 codeine [CODEINE] Allergy Mild Hives Verified 05/16/23 09:16 adhesive tape AdvReac Severe Blister Verified 05/16/23 09:16 ciprofloxacin AdvReac Severe Joint Pain Verified 05/16/23 09:16 Review of Systems Constitutional Constitutional: Reports system reviewed and no additional complaints, except as documented Gastrointestinal Gastrointestinal: Reports system reviewed and no additional complaints, except as documented Genitourinary Genitourinary: Reports system reviewed and no additional complaints, except as documented Musculoskeletal Musculoskeletal: Reports system reviewed and no additional complaints, except as documented Neurologic Neurologic: Reports system reviewed and no additional complaints, except as documented Hematologic/Lymphatic On Anticoagulants: No Patient History Medical History Venous (peripheral) insufficiency Heart attack Poor sleep hygiene Frequent urination Caffeine addiction Tobacco abuse counseling Diverticulitis Urinary leakage Hair thinning Dry skin Hyperlipidemia Hypertension Idiopathic thrombocytopenia purpura Surgical History (Updated 07/11/22 @ 16:18 by Dena Beach MD) S/P right rotator cuff repair Hx of heart artery stent History of appendectomy H/O hysterectomy with oophorectomy History of thyroidectomy, subtotal Social History household members: none Smoking Status: Current every day smoker alcohol intake: never substance use type: does not use Smoking Status: Current every day smoker alcohol intake frequency: other Substance Use Type: does not use Exam Initial Vital Signs Initial Vital Signs: Vital Signs Temperature 97.9 F 05/16/23 09:11 Pulse Rate 82 05/16/23 09:11 Respiratory Rate 16 05/16/23 09:11 Blood Pressure 122/75 05/16/23 09:11 Pulse Oximetry 98 05/16/23 09:11 Oxygen Delivery Method Room Air 05/16/23 09:11 HENMT Head: normal to inspection and normocephalic Resp Effort & Inspection: normal respiratory effort Cardio Rate: regular rate GI Inspection: normal to inspection and non-distended Palpation: soft and tender (Left lower quadrant) Skin General: no rashes or lesions noted Neuro General: patient alert, patient awake and moves all extremities Extrem General: normal to inspection and capillary refill normal Course Orders Ordered: ED Orders 05/16/23 09:00 Complete Blood Count AUTO DIFF Stat Comprehensive Metabolic Panel Stat Lipase Stat 05/16/23 09:19 XR abdomen 1V Stat 05/16/23 09:40 Urinalysis and Microscopic Stat Urine Culture Stat 05/16/23 09:57 CT abdomen pelvis w con Stat Ondansetron HCl (Ondansetron 4 Mg Odt) 4 mg PO NOW PRN PRN Reason: Nausea And Vomiting Ondansetron HCl (Ondansetron 4 Mg/2 Ml Inj) 4 mg IV NOW PRN PRN Reason: Nausea And Vomiting Vital Signs Vital signs: Vital Signs - 8 hr 05/16/23 09:11 Temperature 97.9 F Pulse Rate 82 Respiratory Rate 16 Blood Pressure 122/75 Pulse Oximetry 98 Oxygen Delivery Method Room Air Medical Decision Making Lab Data Lab results reviewed: Yes I reviewed the patient's lab results. 05/16/23 09:00 05/16/23 09:00 Labs: Lab Results 05/16/23 05/16/23 Range/Units 09:00 09:40 WBC 7.8 (4.5-11.0) X10^3/uL RBC 4.27 (4.0-5.2) X10^6/uL Hgb 13.3 (12.0-16.0) g/dL Hct 39.7 (36-46) % MCV 93.1 (80-100) fL MCH 31.2 (26-34) PG MCHC 33.5 (30-36) % RDW 13.7 (11.6-14.8) % Plt Count TNP Neut % (Auto) 59.9 (50-75) % Lymph % (Auto) 28.9 (25-40) % [place] % (Auto) 8.4 (3-14) % Eos % (Auto) 1.6 L (2-4) % Baso % (Auto) 1.2 (0-2) % Neut # (Auto) 4700 (7253-3115) /uL Lymph # (Auto) 2300 (6011-3854) /uL [place] # (Auto) 700 (0-900) /uL Eos # (Auto) 100 (0-450) /uL Baso # (Auto) 100 (0-100) /uL Platelet Estimate Decreased on smear Plt Morphology Comment RBC Morphology Normal morphology Sodium 136 L (137-145) mmol/L Potassium 3.9 (3.4-5.1) mmol/L Chloride 106 (98-107) mmol/L Carbon Dioxide 27 (22-32) mmol/L BUN 10 (7-17) mg/dL Creatinine 0.71 (0.52-1.04) mg/dL Estimated GFR > 60 (>60) mL/min BUN/Creatinine Ratio 14.1 (6-22) Glucose 104 (80-110) mg/dL Calcium 9.5 (8.4-10.2) mg/dL Total Bilirubin 1.3 (0.2-1.3) mg/dL AST 21 (14-36) IU/L ALT 18 (<35) IU/L Alkaline Phosphatase 76 (38-126) U/L Total Protein 6.6 (6.3-8.2) g/dL Albumin 4.0 (3.5-5.0) g/dL Globulin 2.6 (1.7-4.1) g/dL Albumin/Globulin Ratio 1.5 (1.0-2.8) Lipase 46 (23-300) U/L Urine Color Yellow Urine Appearance Clear Urine pH 6.5 (4.5-8.0) Ur Specific [place] 1.010 (1.000-1.035) Urine Protein Negative (Negative) Urine Glucose (UA) Negative (Negative) g/dL Urine Ketones Negative (NEGATIVE) Urine Occult Blood 2+ H (Negative) Urine Nitrate Negative (Negative) Urine Bilirubin Negative (NEGATIVE) Urine Urobilinogen 1.0 (0.2) E.U./dL Ur Leukocyte Esterase Negative (NEGATIVE) Urine RBC 1-5/hpf (0-5/HPF) Urine WBC 0-1/hpf (0-5/HPF) Ur Squamous Epith Cells 0-1 /hpf (0-5/HPF) Urine Bacteria Moderate (10-30) H (None) Ur Culture Indicated? Specimen cultured Imaging Data Abdominal x-ray: Radiologist's Impression: PROCEDURE: XR ABDOMEN 1V INDICATIONS: Colonoscopy 2 days ago with the abdominal pain TECHNIQUE: One view of the abdomen acquired. COMPARISON: None. FINDINGS: Surgical changes and devices: None. Bowel: Bowel gas pattern is normal. Scattered stool. No free air. Soft tissues: No suspicious abdominal calcifications. Visualized solid organ contours appear normal in size. Bones: No suspicious bony lesions. IMPRESSION: Unremarkable exam. CT scan - abdomen/pelvis: Radiologist's Impression: PROCEDURE: CT ABDOMEN PELVIS W CON INDICATIONS: LLQ abd pain , colonoscopy 2 days ago, history of diverticulitis TECHNIQUE: After the administration of oral and IV contrast, axial sections were acquired from the lung bases to the pubic symphysis. Coronal and sagittal reformats were performed. For radiation dose reduction, the following was used: automated exposure control, adjustment of mA and/or kV according to patient size. COMPARISON: [facility], CT, CT KIDNEY URETER BLADDER (KUB), 02/15/2021, 13:36. [facility], CT, CT ABDOMEN PELVIS W CON, 12/09/2019, 8:53. FINDINGS: Image quality: Excellent. Lung bases: Unremarkable. Heart: No significant findings. ABDOMEN: Liver: No solid mass. Steatosis. Gallbladder: No radiopaque gallstones or wall thickening. Biliary ducts: No biliary dilation. Pancreas: No ductal dilation. Spleen: Size is within normal limits. Adrenal Glands: No adrenal nodules. Kidneys and Ureters: No hydronephrosis. No solid mass. No complex renal cystic lesion which requires follow up. Stomach and Bowel: Normal colonic caliber, without significant wall thickening. Diverticula without inflammatory change. Peritoneum: No abnormal intraperitoneal fluid. No free air. Ventral Wall: No hernia. Abdominal Nodes: No retroperitoneal or mesenteric adenopathy by size criteria. Vessels: Aorta and inferior vena cava are normal in size. PELVIS: Pelvic Organs: Unremarkable. Bladder: Unremarkable. Pelvic Nodes: No enlarged lymph nodes. Miscellaneous: No inguinal hernias are seen. Bones: Unremarkable. IMPRESSION: Diverticulitis. No free air. MDM Narrative Medical decision making narrative: Patient has a history of diverticulitis and CT scan evidence consistent with diverticulitis. No signs of perforation. Has a relatively benign exam. Is tolerating oral intake. Patient is allergic to penicillins and also Cipro. Will place her on Bactrim and Flagyl. Will discharge patient home with return precautions. She expressed understanding and agreement. Discharge Plan Departure Patient Disposition: Home Clinical Impression: Diverticulitis Instructions: DI for Diverticulitis Activity Restrictions/Additional Instructions: Recommend that you follow all of the postprocedure instructions given to you by the GI doctor who did the colonoscopy. Take the antibiotics as directed. Return to the emergency department for new or worsening symptoms. Prescriptions: New metronidazole 500 mg tablet 500 mg PO TID 10 Days Qty: 30 0RF sulfamethoxazole-trimethoprim [Bactrim DS] 800-160 mg tablet 1 tab PO BID 10 Days Qty: 20 0RF No Action cholecalciferol (vitamin D3) 2,000 unit capsule 4,000 unit PO DAILY NITROGLYCERIN (Nitrostat) 0.4 mg Sublingual PRN Qty: 0 acetaminophen 325 MG tablet 325 mg PO PRN PRN (Reason: Pain (Scale Score 4-6)) Qty: 0 levothyroxine 88 mcg tablet 88 mcg PO DAILY Qty: 90 3RF rosuvastatin 40 mg Tablet 40 mg DAILY cyanocobalamin (vitamin B-12) [Vitamin B-12] 1,000 mcg Tablet 2,000 mcg DAILY calcium carbonate [Calcium 600] 600 mg calcium (1,500 mg) Tablet 1,200 mg PO DAILY metoprolol succinate 25 mg Tablet Extended Release 24 Hr 12.5 mg PO DAILY Referrals: Channing Garcia DO [Primary Care Provider] - Stand Alone Forms: Patient Portal/API
[2023-05-16 09:54] LABS: Basophils Absolute Auto 100 /uL (0-100); Basophils Percent Auto 1.2 % (0-2); Eosinophils Absolute Auto 100 /uL (0-450); Eosinophils Percent Auto 1.6 % (2-4); Hematocrit 39.7 % (36-46); Hemoglobin 13.3 g/dL (12.0-16.0); Lymphocytes Absolute Auto 2300 /uL (1100-4500); Lymphocytes Percent Auto 28.9 % (25-40); Mean Corpuscular HGB Conc 33.5 % (30-36); Mean Corpuscular Hemoglobin 31.2 PG (26-34); Mean Corpuscular Volume 93.1 fL (80-100); Monocytes Absolute Auto 700 /uL (0-900); Monocytes Percent Auto 8.4 % (3-14); Neutrophils Absolute Auto 4700 /uL (1500-7000); Neutrophils Percent Auto 59.9 % (50-75); Red Blood Cell Count 4.27 X10^6/uL (4.0-5.2); Red Cell Distribution Width 13.7 % (11.6-14.8); White Blood Cell Count 7.8 X10^3/uL (4.5-11.0)
--- NOTE | 2023-05-16 09:57 | DI.CT.S_ITS ---
PROCEDURE: CT ABDOMEN PELVIS W CON INDICATIONS: LLQ abd pain , colonoscopy 2 days ago, history of diverticulitis TECHNIQUE: After the administration of oral and IV contrast, axial sections were acquired from the lung bases to the pubic symphysis. Coronal and sagittal reformats were performed. For radiation dose reduction, the following was used: automated exposure control, adjustment of mA and/or kV according to patient size. COMPARISON: [facility], CT, CT KIDNEY URETER BLADDER (KUB), 02/15/2021, 13:36. Merged With [facility], CT, CT ABDOMEN PELVIS W CON, 12/09/2019, 8:53. FINDINGS: Image quality: Excellent. Lung bases: Unremarkable. Heart: No significant findings. ABDOMEN: Liver: No solid mass. Steatosis. Gallbladder: No radiopaque gallstones or wall thickening. Biliary ducts: No biliary dilation. Pancreas: No ductal dilation. Spleen: Size is within normal limits. Adrenal Glands: No adrenal nodules. Kidneys and Ureters: No hydronephrosis. No solid mass. No complex renal cystic lesion which requires follow up. Stomach and Bowel: Normal colonic caliber, without significant wall thickening. Diverticula without inflammatory change. Peritoneum: No abnormal intraperitoneal fluid. No free air. Ventral Wall: No hernia. Abdominal Nodes: No retroperitoneal or mesenteric adenopathy by size criteria. Vessels: Aorta and inferior vena cava are normal in size. PELVIS: Pelvic Organs: Unremarkable. Bladder: Unremarkable. Pelvic Nodes: No enlarged lymph nodes. Miscellaneous: No inguinal hernias are seen. Bones: Unremarkable. IMPRESSION: Diverticulitis. No free air. Dictated by: Patti Da Silva M.D. on 05/16/2023 at 11:31 Approved by: Patti Da Silva M.D. on 05/16/2023 at 11:34
[2023-05-16 10:03] LABS: Alanine Aminotransferase 18 IU/L (<35); Albumin Globulin Ratio 1.5 (1.0-2.8); Alkaline Phosphatase 76 U/L (38-126); Aspartate Aminotransferase 21 IU/L (14-36); BUN Creatinine Ratio 14.1 (6-22); Bilirubin Total 1.3 mg/dL (0.2-1.3); Blood Urea Nitrogen 10 mg/dL (7-17); Calcium 9.5 mg/dL (8.4-10.2); Carbon Dioxide 27 mmol/L (22-32); Chloride 106 mmol/L (98-107); Estimated Glomerular Filt Rate > 60 mL/min (>60); Globulin 2.6 g/dL (1.7-4.1); Glucose 104 mg/dL (80-110); HEMOLYSIS < 15 (0-50); Lipase 46 U/L (23-300); Potassium 3.9 mmol/L (3.4-5.1); Sodium 136 mmol/L (137-145); Total Protein 6.6 g/dL (6.3-8.2)
[2023-05-16 10:09] LABS: Add Manual Diff / Slide Review SLIDE REVIEW
[2023-05-16 10:11] LABS: Platelet Estimate Decreased on smear; RBC Morphology Normal Morphology
[2023-05-16 10:36] LABS: Appearance Urine UA CLEAR; Bilirubin Urine UA NEGATIVE (NEGATIVE); Color Urine UA YELLOW; Glucose Urine UA NEGATIVE (Negative); Ketones Urine UA NEGATIVE (NEGATIVE); Leukocyte Esterase Urine UA NEGATIVE (NEGATIVE); Nitrite Urine UA NEGATIVE (Negative); Occult Blood Urine UA 2+ (Negative); Protein Urine UA NEGATIVE (Negative)
[2023-05-16 10:38] LABS: pH Urine UA 6.5 (4.5-8.0)
[2023-05-16 10:51] LABS: Bacteria Urine Moderate (10-30); Culture Indicated Urine Specimen Cultured; RBC Urine 1-5/HPF (0-5/HPF); Squamous Epithelial Cell Urine 0-1 /HPF (0-5/HPF); WBC Urine 0-1/HPF (0-5/HPF)
--- NOTE | 2023-05-16 11:41 | PC.NURSE ---
patient was stating that her IV was hurting her arm and wanted it out. Provider notified and okaayed the removal of the IV.
[2023-05-16 11:51] VITALS: BP 156/68; PULSE 69; RESP 12; O2SAT 96
== END 2023-05-16 11:53 | disposition home or self-care (01) ==
PROVIDERS: Emergency Provider Emergency Medicine; PCP Family Medicine
DX: K57.92 Diverticulitis of intestine, part unspecified, without perforation or abscess without bleeding (principal)
CPT/HCPCS: 36415; 74018; 74177; 80053; 81001; 83690; 85025; 87077; 87086; 87186; 99283; 99284

== ENCOUNTER 2023-07-19 18:04 | Emergency (ER) | payer MEDICARE, OTHER, SELFPAY ==
[2023-07-19 18:05] VITALS: BP 126/79; PULSE 101; RESP 15; TEMP 37.1; O2SAT 96; BMI 29.6
--- NOTE | 2023-07-19 18:15 | DI.RAD.S_ITS ---
PROCEDURE: XR KNEE RT 3V INDICATIONS: knee pain TECHNIQUE: 3 views of the knee were acquired. COMPARISON: [facility], , KNEE 3V RIGHT, 02/06/2015, 11:24. FINDINGS: Bones: No fractures or dislocations. No suspicious bony lesions. Soft tissues: No joint effusion. No suspicious soft tissue calcifications. IMPRESSION: Plain film study within normal limits. If it would be helpful for clinical management decision making, please consider a dedicated, scheduled knee MRI for further evaluation (assuming that there is no contraindication). Dictated by: Rudy Ford M.D. on 07/19/2023 at 17:58 Approved by: Rudy Ford M.D. on 07/19/2023 at 17:59
--- NOTE | 2023-07-19 18:23 | DI.US.S_ITS ---
PROCEDURE: US PERIPH VENOUS LOW EXTREM RT INDICATIONS: PAIN AND SWELLING TECHNIQUE: Real-time imaging, as well as color and pulse Doppler interrogation, were performed of the lower extremity deep veins from the inguinal ligament to the popliteal fossa, with documentation of the visualized calf veins. COMPARISON: [facility], CR, XR KNEE RT 3V, 07/19/2023, 18:19. FINDINGS: The common femoral, femoral, popliteal, and the visualized calf veins are normally compressible, and free of intraluminal thrombus. Color and pulse Doppler demonstrate normal phasic intraluminal flow. There is normal augmentation response to distal compression maneuver. Superficial venous thrombosis can be seen along the medial aspect of the knee, with occlusive thrombus. IMPRESSION: No findings of lower extremity deep venous thrombosis. Occlusive superficial venous thrombosis can be seen at the level of the knee. Dictated by: Rudy Ford M.D. on 07/19/2023 at 18:50 Approved by: Rudy Ford M.D. on 07/19/2023 at 18:52
--- NOTE | 2023-07-19 18:38 | ED_ITS ---
HPI - Extremity Problem <Trevor Arana PA-C - Last Filed: 07/19/23 19:58> General Chief complaint: Extremity Problem,Nontraumatic Stated complaint: NON injury right knee swelling and pain Time Seen by Provider: 07/19/23 18:09 Source: patient Mode of arrival: Wheelchair History of Present Illness HPI Narrative: This is a 68-year-old female presents emergency department due to right knee swelling for the last 5 days. She states that she has a history of Lange's cyst but this feels different. She was not recall any acute injury to the knee and she had not fall or land on it or twisted abnormally. She states she was having significant pain to the posterior knee as well as the medial portion. She states that it is more swollen. Does not state that is warm to the touch or especially red. Denies any chest pain, shortness of breath, or any other concerning signs or symptoms. Related Data Home Medications Medication Instructions Recorded Confirmed NITROGLYCERIN (Nitrostat) 0.4 mg sublingual PRN ##0 03/20/10 05/14/23 acetaminophen 325 mg tablet 325 mg PO PRN PRN Pain (Scale 08/19/17 05/14/23 Score 4-6) ##0 cholecalciferol (vitamin D3) 50 4,000 unit PO DAILY 10/23/17 05/14/23 mcg (2,000 unit) capsule rosuvastatin 40 mg tablet 40 mg DAILY 08/04/18 05/14/23 calcium carbonate 600 mg calcium 1,200 mg PO DAILY 08/17/19 05/14/23 (1,500 mg) tablet (Calcium) cyanocobalamin (vitamin B-12) 2,000 mcg DAILY 08/17/19 05/14/23 1,000 mcg tablet (Vitamin B-12) metoprolol succinate 25 mg 12.5 mg PO DAILY 07/05/21 05/14/23 tablet,extended release 24 hr Previous Rx's Medication Instructions Recorded levothyroxine 88 mcg tablet 88 mcg PO DAILY #90 tabs 07/18/22 Allergies Allergy/AdvReac Type Severity Reaction Status Date / Time amoxicillin [From Augmentin] Allergy Severe Anaphylaxis Verified 07/19/23 18:16 clavulanic acid Allergy Severe Anaphylaxis Verified 07/19/23 18:16 [From Augmentin] Penicillins [PENICILLINS] Allergy Severe Anaphylaxis Verified 07/19/23 18:16 morphine [MORPHINE] Allergy Intermediate Hives Verified 07/19/23 18:16 codeine [CODEINE] Allergy Mild Hives Verified 07/19/23 18:16 metronidazole [From Flagyl] Allergy Verified 07/19/23 18:16 adhesive tape AdvReac Severe Blister Verified 07/19/23 18:16 ciprofloxacin AdvReac Severe Joint Pain Verified 07/19/23 18:16 Review of Systems <Trevor Arana PA-C - Last Filed: 07/19/23 19:58> Review of Systems Narrative: GENERAL: Denies chills, fatigue, malaise, fever, sweats. HEENT: Denies sinus pain, ear pain, sore throat, difficulty swallowing, dizziness. RESPIRATORY: Denies dyspnea, cough, wheezing, hemoptysis, sputum. CARDIOVASCULAR: Denies chest pain, palpitations, orthopnea, edema, GASTROINTESTINAL: Denies nausea, vomiting, abdominal pain, diarrhea, constipation, melena. : Denies dysuria, frequency, incontinence, hematuria, urinary retention. MUSCULOSKELETAL: Reports right knee pain. SKIN: Denies rash, skin lesions, or other NEUROLOGIC: Denies weakness, headache, numbness, change in speech, confusion, seizures, incoordination. PSYCHIATRIC: No concerning psychosocial issues. 12 point review of systems is negative except for those stated above Patient History <Trevor Arana PA-C - Last Filed: 07/19/23 19:58> Medical History Venous (peripheral) insufficiency Heart attack Poor sleep hygiene Frequent urination Caffeine addiction Tobacco abuse counseling Diverticulitis Urinary leakage Hair thinning Dry skin Hyperlipidemia Hypertension Idiopathic thrombocytopenia purpura Surgical History (Updated 07/11/22 @ 16:18 by Dena Beach MD) S/P right rotator cuff repair Hx of heart artery stent History of appendectomy H/O hysterectomy with oophorectomy History of thyroidectomy, subtotal Social History household members: none Smoking Status: Current every day smoker alcohol intake: never substance use type: does not use Smoking Status: Current every day smoker alcohol intake frequency: other Substance Use Type: does not use Exam <Trevor Arana PA-C - Last Filed: 07/19/23 19:58> Narrative Exam Narrative: GENERAL: Well-developed patient, in mild distress. HEAD: Atraumatic. Normocephalic. EYES: Pupils equal round and reactive. Extraocular motions intact. No scleral icterus. No injection or drainage. ENT: Nose without bleeding, purulent drainage. Throat without erythema, tonsillar hypertrophy or exudate. Airway patent. NECK: Trachea midline. Non tender EXTREMITIES: Moderate edema to the medial aspect of the knee. Tenderness to palpation to the medial aspect as well as to the popliteal area. No joint stiffness although patient does report pain with range of motion. Neurovascularly intact throughout. NEURO: AOx3. SKIN: No rash or erythema of visible areas Initial Vital Signs Initial Vital Signs: Vital Signs Temperature 98.8 F 07/19/23 18:05 Pulse Rate 101 H 07/19/23 18:05 Respiratory Rate 15 07/19/23 18:05 Blood Pressure 126/79 07/19/23 18:05 Pulse Oximetry 96 07/19/23 18:05 Oxygen Delivery Method Room Air 07/19/23 18:05 <Valentín Wilder DO - Last Filed: 07/20/23 07:02> Initial Vital Signs Initial Vital Signs: Vital Signs Temperature 98.8 F 07/19/23 18:05 Pulse Rate 101 H 07/19/23 18:05 Respiratory Rate 15 07/19/23 18:05 Blood Pressure 126/79 07/19/23 18:05 Pulse Oximetry 96 07/19/23 18:05 Oxygen Delivery Method Room Air 07/19/23 18:05 Course <Trevor Arana PA-C - Last Filed: 07/19/23 19:58> Orders Ordered: ED Orders 07/19/23 18:15 XR knee RT 3V Stat 07/19/23 18:23 US periph venous low extrem rt Stat Vital Signs Vital signs: Vital Signs - 8 hr 07/19/23 18:05 Temperature 98.8 F Pulse Rate 101 H Respiratory Rate 15 Blood Pressure 126/79 Pulse Oximetry 96 Oxygen Delivery Method Room Air <DO German Au Last Filed: 07/20/23 07:02> Orders Ordered: ED Orders 07/19/23 18:15 XR knee RT 3V Stat 07/19/23 18:23 US periph venous low extrem rt Stat Vital Signs Vital signs: Vital Signs - 8 hr 07/19/23 18:05 Temperature 98.8 F Pulse Rate 101 H Respiratory Rate 15 Blood Pressure 126/79 Pulse Oximetry 96 Oxygen Delivery Method Room Air MDM - Extremity (Nontraumatic) <Trevor Arana PA-C - Last Filed: 07/19/23 19:58> Imaging Data Extremity x-ray #1: Radiologist's Impression: Close Knee X-Ray (Signed) Rudy Ford - 07/19/23 Launch?Image [address] [address] XRay Report Signed Patient: Aurea Burkett MR#: [id number] : 1955 Acct:[id number] Age/Sex: 68 / F Date of Service: 07/19/23 Loc: ED Accession Number: [id number] Procedure: XR knee RT 3V Ordering Provider: Trevor Arana P.A-C PROCEDURE: XR KNEE RT 3V INDICATIONS: knee pain TECHNIQUE: 3 views of the knee were acquired. COMPARISON: [facility], , KNEE 3V RIGHT, 02/06/2015, 11:24. FINDINGS: Bones: No fractures or dislocations. No suspicious bony lesions. Soft tissues: No joint effusion. No suspicious soft tissue calcifications. IMPRESSION: Plain film study within normal limits. If it would be helpful for clinical management decision making, please consider a dedicated, scheduled knee MRI for further evaluation (assuming that there is no contraindication). Dictated by: Rudy Ford M.D. on 07/19/2023 at 17:58 Approved by: Rudy Ford M.D. on 07/19/2023 at 17:59 US - DVT: Radiologist's Impression: [address] [address] Ultrasound Report Signed Patient: Aurea Burkett MR#: [id number] : 1955 Acct:[id number] Age/Sex: 68 / F Date of Service: 07/19/23 Loc: ED Accession Number: [id number] Procedure: US periph venous low extrem rt Ordering Provider: Trevor Arana P.A-C PROCEDURE: US PERIPH VENOUS LOW EXTREM RT INDICATIONS: PAIN AND SWELLING TECHNIQUE: Real-time imaging, as well as color and pulse Doppler interrogation, were performed of the lower extremity deep veins from the inguinal ligament to the popliteal fossa, with documentation of the visualized calf veins. COMPARISON: [facility], CR, XR KNEE RT 3V, 07/19/2023, 18:19. FINDINGS: The common femoral, femoral, popliteal, and the visualized calf veins are normally compressible, and free of intraluminal thrombus. Color and pulse Doppler demonstrate normal phasic intraluminal flow. There is normal augmentation response to distal compression maneuver. Superficial venous thrombosis can be seen along the medial aspect of the knee, with occlusive thrombus. IMPRESSION: No findings of lower extremity deep venous thrombosis. Occlusive superficial venous thrombosis can be seen at the level of the knee. Dictated by: Rudy Ford M.D. on 07/19/2023 at 18:50 Approved by: Rudy Ford M.D. on 07/19/2023 at 18:52 MDM Narrative Medical decision making narrative: ED course: This is a 68-year-old female presents to the emergency department due 5 days of right knee pain and swelling. X-ray was negative for any fractures or other bony abnormalities. Ultrasound was ordered which showed a superficial venous thrombosis at the medial knee within the GSV. Under 5 cm in size. No anticoagulation prescribed based on guidelines from up-to-date. Recommended supportive care. Patient will follow up his her primary care provider in a couple of days for routine monitoring. CC: Right knee pain Complicating co-morbidities: Chronic venous insufficiency Data collected from: Previous notes Medical records reviewed: Patient was last seen in the ED approximately 3 months ago due to diverticulitis. History of venous peripheral insufficiency, ?heart attack?, tobacco use, diverticulitis, hypertension, idiopathic thrombocytopenia purpura. Differential considered, but not limited to: Tibia fracture, femur fracture, DVT, medial bursitis, meniscal injury Exam documented above, pertinent findings include: Mild edema noted to the medial knee. No bony tenderness to palpation. Lab Test results independently reviewed as above. Pertinent findings: None obtained Imaging studies independently reviewed: Per technical writer patient was a superficial venous thrombosis at the medial knee within the GSV under 5 cm in size. Scores Used: None MIPS Elements: None Consultations: None Treatments: None Re-evaluations: None Discussion: Discussed plan with the patient was comfortable with the plan Diagnosis: Superficial venous thrombosis Disposition: see below, along with detailed discharge instructions that have been reviewed with patient as well as indications for ED re-evaluation and additional outpatient follow up Discharge Plan Departure Patient Disposition: Home Clinical Impression: Superficial vein thrombosis Activity Restrictions/Additional Instructions: Thank you for coming to the [facility] Emergency Department today. As we discussed your ultrasound showed a superficial venous thrombosis. There was no anticoagulation needed. This is different than a deep venous thrombosis that you may have heard of that is more worrisome. The x-ray showed no bony abnormalities. I recommend rest, warm compresses, elevation, Tylenol as needed and to follow up with the primary care provider for routine follow up. Please return to the emergency department if you develop any chest pain, shortness of breath, worsening pain or swelling, or any other concerning signs or symptoms. I hope you feel better soon. Please follow up with your primary care provider within a week if your symptoms continue. If you do not have a primary care provider please contact the [facility] Resource line at [phone]. They will ask some questions about your medical history and help you get set up with a provider in the community. Prescriptions: No Action cholecalciferol (vitamin D3) 2,000 unit capsule 4,000 unit PO DAILY NITROGLYCERIN (Nitrostat) 0.4 mg Sublingual PRN Qty: 0 acetaminophen 325 MG tablet 325 mg PO PRN PRN (Reason: Pain (Scale Score 4-6)) Qty: 0 levothyroxine 88 mcg tablet 88 mcg PO DAILY Qty: 90 3RF rosuvastatin 40 mg Tablet 40 mg DAILY cyanocobalamin (vitamin B-12) [Vitamin B-12] 1,000 mcg Tablet 2,000 mcg DAILY calcium carbonate [Calcium 600] 600 mg calcium (1,500 mg) Tablet 1,200 mg PO DAILY metoprolol succinate 25 mg Tablet Extended Release 24 Hr 12.5 mg PO DAILY Referrals: Channing Garcia DO [Primary Care Provider] - Stand Alone Forms: Patient Portal/API ED Sign-out <Valentín Wilder DO - Last Filed: 07/20/23 07:02> Cosign ED Attending Cosignature Attestation: Dr Wilder Co-Sign Statement: I was available for consultation during this patient's emergency department visit. This chart is signed by myself for administrative purposes only. I did not have direct contact with this patient during this visit. They were seen independently by the APC.
[2023-07-19 20:02] VITALS: BP 115/67; PULSE 81; RESP 16; O2SAT 94
== END 2023-07-19 20:04 | disposition home or self-care (01) ==
PROVIDERS: Emergency Provider Physician Assistant Medical; PCP Family Medicine
DX: I82.811 Embolism and thrombosis of superficial veins of right lower extremity (principal)
CPT/HCPCS: 73562; 93971; 99281; 99283

== ENCOUNTER → 2023-08-02 11:00 | Outpatient (CLI) | payer MEDICARE, OTHER, SELFPAY ==
--- NOTE | 2023-08-02 11:02 | DI.CT.S_ITS ---
PROCEDURE: CT LUNG LOW DOSE SCREENING INDICATIONS: screening lung cancer TECHNIQUE: Noncontrast 2.0-2.5 mm thick sections acquired from the pulmonary apices to the posterior costophrenic angles. 7 mm thick axial MIP, and 5 mm coronal and sagittal reformats were then acquired. For radiation dose reduction, the following was used: automated exposure control, adjustment of mA and/or kV according to patient size. COMPARISON: None. FINDINGS: Image quality: Diagnostic. Lower Neck: No enlarged lymph nodes. 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 The right thyroid lobe is unremarkable. Axillae: No enlarged lymph nodes. Chest Wall: Unremarkable. Bones: Unremarkable. Lungs and Pleura: No pneumothorax or pleural effusions. A 4 mm pulmonary nodule is present within the right upper lobe (series 3/image 95). A 1.8 x 1.4 cm mass is present at the right hilum (series 3/image 156). Heart: Heart size is normal. No pericardial effusion. Thoracic Vessels: The aorta and pulmonary arteries demonstrate normal size. Scattered atheromatous calcifications are present within the aortic arch. Mediastinum and Ping: No enlarged lymph nodes. Esophagus: No wall thickening. No hiatal hernia. Upper Abdomen: Visualized upper abdomen solid organs and bowel loops appear normal. IMPRESSION: 1.8 x 1.4 cm mass at the right hilum which is incompletely characterized in the absence of contrast. Given the deep location, this is not amenable to percutaneous biopsy. PET-CT or bronchoscopic biopsy recommended. LUNG-RADS 4B; suspicious. PET-CT or biopsy recommended. Clinically Significant Non-pulmonary Findings: Aortic atherosclerosis. Dictated by: Nida Guardado M.D. on 08/03/2023 at 17:54 Approved by: Nida Guardado M.D. on 08/03/2023 at 17:58
--- NOTE | 2023-08-02 11:02 | DI.MG.S_ITS ---
BILATERAL DIGITAL SCREENING MAMMOGRAM 3D/2D WITH CAD: 08/02/2023 CLINICAL: Routine screening. Comparison is made to exams dated: 06/26/2019 mammogram, 05/16/2016 mammogram, 09/17/2013 mammogram, and 09/17/2013 mammogram - [facility]. There are scattered areas of fibroglandular density in both breasts (category b / 25%-50% glandular tissue). Current study was also evaluated with a Computer Aided Detection (CAD) system. No significant masses, calcifications, or other findings are seen in either breast. There has been no significant interval change. IMPRESSION: NEGATIVE There is no mammographic evidence of malignancy. A 1 year screening mammogram is recommended. Based on the Tyrer Cuzick model (a risk assessment model) the patient's lifetime risk is 3.9% and her 10 year risk is 2.1%. According to the ACR, ACS, and NCCN guidelines, an annual breast MRI exam along with mammogram is recommended if the patient's lifetime risk is 20% or greater. This exam was interpreted at Station ID: [id number]. NOTE: For mammograms, a report in lay terms will be sent to the patient. Approximately 15% of breast malignancies will not be visualized mammographically. In the management of a palpable breast mass, a negative mammogram must not discourage biopsy of a clinically suspicious lesion. Electronically Signed By: Rafa alston/dominique:08/04/2023 13:41:36 letter sent: Normal Exam ACR BI-RADS Category 1: Negative [id number]
== END ==
LOC: MAMMO 11:01
PROVIDERS: PCP Family Medicine; Referring Provider Family Medicine; Visit Provider Family Medicine
DX: Z12.31 Encounter for screening mammogram for malignant neoplasm of breast (principal); R92.323 Mammographic fibroglandular density, bilateral breasts; Z12.2 Encounter for screening for malignant neoplasm of respiratory organs; F17.210 Nicotine dependence, cigarettes, uncomplicated; R91.8 Other nonspecific abnormal finding of lung field; I70.0 Atherosclerosis of aorta
CPT/HCPCS: 71271; 77063; 77067

== ENCOUNTER → 2023-08-06 09:41 | Outpatient (CLI) | payer MEDICARE, OTHER, SELFPAY ==
--- NOTE | 2023-08-06 09:42 | DI.RAD.S_ITS ---
Bone Density Report Name: ROBLES OMER Age: 68 Sex: Female Ethnicity: White Date of : 1955 Indication: postmenopausal osteoporosis; Referring Provider: BECKIE IBARRA Study: Bone densitometry was performed. Exam Date: August 06, 2023 Accession number: [id number] Bone Density: Region BMD T-score Z-score Classification AP Spine(L1-L4) 0.662 -3.5 -1.5 Osteoporosis Femoral Neck (Left) 0.551 -2.7 -1.0 Osteoporosis Total Hip (Left) 0.730 -1.7 -0.3 Osteopenia Femoral Neck (Right) 0.558 -2.6 -0.9 Osteoporosis Total Hip (Right) 0.700 -2.0 -0.6 Osteopenia Total Hip Mean 0.715 -1.9 -0.5 Osteopenia World Health Organization criteria for BMD impression classify patients as: Normal (T-score at or above -1.0), Osteopenia (T-score between -1.0 and -2.5), or Osteoporosis (T-score at or below -2.5). 10-year Fracture Risk: FRAX not reported because: Some T-score for Spine Total or Hip Total or Femoral Neck at or below -2.5 Previous Exams: -- Region Exam Age BMD T-score BMD Change BMD Change Date g/cm2 vs Baseline vs Previous -- AP Spine (L1-L4) 08/06/2023 68 0.662 -3.5 -0.076 (-10.3%)# -0.022 (-3.2%)# 06/25/2019 64 0.684 -3.3 -0.054 (-7.3%)* -0.054 (-7.3%)* 01/03/2010 54 0.738 -2.8 Total Hip(Left) 08/06/2023 68 0.730 -1.7 -0.069 (-8.6%)# -0.028 (-3.7%)# 06/25/2019 64 0.758 -1.5 -0.041 (-5.1%)* -0.041 (-5.1%)* 01/03/2010 54 0.799 -1.2 Total Hip(Right) 08/06/2023 68 0.700 -2.0 -0.052 (-6.9%)# -0.010 (-1.4%)# 06/25/2019 64 0.710 -1.9 -0.042 (-5.6%)* -0.042 (-5.6%)* 01/03/2010 54 0.752 -1.6 -- *Denotes significance at 95% confidence level, LSC for AP Spine = 0.022 g/cm2, LSC for Total Hip = 0.027 g/cm2 # Denotes dissimilar scan types or analysis methods Impression: The patient has osteoporosis, based on the Total Spine T-score. No significant bone loss was observed. Discussion: INCREASED RISK OF FRACTURE. BONE DENSITY IS UNDESIRABLY LOW AT ONE OR MORE SKELETAL SITES, CONSISTENT WITH POSTMENOPAUSAL OSTEOPOROSIS. This patient's lowest T-score meets the World Health Organization's (WHO) criteria for osteoporosis at one or more sites (T-score -2.5 or below). In untreated patients, the risk of osteoporotic fracture increases approximately two-fold for each 1.0 SD decrease in T-score. Low bone density is not the only risk factor for fracture; also consider factors such as patient's age, frailty or poor health, risk of falling, risk of injury, previous osteoporotic fracture, family history of osteoporosis, cigarette smoking, low body weight, etc. Not everyone with low bone mineral density has osteoporosis; osteomalacia and other metabolic bone disorders should also be considered. Patients who have osteoporosis should be evaluated for specific diseases and conditions (secondary causes) that may cause or contribute to bone loss. The [place] Association [employer] Clinical Endocrinologists (AACE) and National Osteoporosis Foundation (NOF) recommend pharmacologic intervention for all postmenopausal women whose T-score is in this range. The patient should follow a healthful lifestyle (good nutrition with adequate calcium and vitamin D, and appropriate weight-bearing exercise). Follow-Up: Consider a repeat BMD and Vertebral Fracture Assessment (VFA) exam in 2 years or sooner if medically necessary, to reassess this patient's status. Reported by: ANN HARTMAN MD on 08/06/2023 10:06:00 AM.
== END ==
LOC: RAD 09:41
PROVIDERS: PCP Family Medicine; Referring Provider Family Medicine; Visit Provider Family Medicine
DX: M81.0 Age-related osteoporosis without current pathological fracture (principal)
CPT/HCPCS: 77080

== ENCOUNTER → 2023-08-07 06:52 | Outpatient (CLI) | payer MEDICARE, OTHER, SELFPAY ==
[2023-08-07 07:23] LABS: Add Manual Diff / Slide Review NO; Basophils Absolute Auto 100 /uL (0-100); Basophils Percent Auto 1.4 % (0-2); Eosinophils Absolute Auto 300 /uL (0-450); Eosinophils Percent Auto 3.1 % (2-4); Hematocrit 39.6 % (36-46); Hemoglobin 13.3 g/dL (12.0-16.0); Lymphocytes Absolute Auto 2900 /uL (1100-4500); Lymphocytes Percent Auto 30.9 % (25-40); Mean Corpuscular HGB Conc 33.7 % (30-36); Mean Corpuscular Hemoglobin 30.5 PG (26-34); Mean Corpuscular Volume 90.8 fL (80-100); Monocytes Absolute Auto 1000 /uL (0-900); Monocytes Percent Auto 10.1 % (3-14); Neutrophils Absolute Auto 5100 /uL (1500-7000); Neutrophils Percent Auto 54.5 % (50-75); Red Blood Cell Count 4.36 X10^6/uL (4.0-5.2); Red Cell Distribution Width 13.6 % (11.6-14.8); White Blood Cell Count 9.4 X10^3/uL (4.5-11.0)
[2023-08-07 08:19] LABS: Alanine Aminotransferase 16 IU/L (<35); Albumin 4.1 g/dL (3.5-5.0); Albumin Globulin Ratio 1.4 (1.0-2.8); Alkaline Phosphatase 89 U/L (38-126); Aspartate Aminotransferase 19 IU/L (14-36); BUN Creatinine Ratio 25.4 (6-22); Bilirubin Total 0.8 mg/dL (0.2-1.3); Blood Urea Nitrogen 18 mg/dL (7-17); Calcium 10.1 mg/dL (8.4-10.2); Carbon Dioxide 24 mmol/L (22-32); Chloride 105 mmol/L (98-107); Estimated Glomerular Filt Rate > 60 mL/min (>60); Globulin 2.9 g/dL (1.7-4.1); Glucose 102 mg/dL (80-110); HEMOLYSIS < 15 (0-50); Sodium 139 mmol/L (137-145)
[2023-08-07 08:47] LABS: Free T4, Direct Thyroxine 2.44 ng/dL (0.78-2.19)
[2023-08-07 09:01] LABS: Thyroid Stimulating Hormone 0.169 uIU/mL (0.47-4.68)
== END ==
PROVIDERS: PCP Family Medicine; Referring Provider Family Medicine; Visit Provider Family Medicine
DX: E78.5 Hyperlipidemia, unspecified (principal); I10 Essential (primary) hypertension; I82.890 Acute embolism and thrombosis of other specified veins
CPT/HCPCS: 36415; 80053; 84439; 84443; 85025

== ENCOUNTER 2024-01-18 20:05 | Emergency (ER) | payer MEDICARE, OTHER, SELFPAY ==
[2024-01-18] VITALS (11 sets, daily range): BP systolic 108–139; BP diastolic 58–83; PULSE 87–109; RESP 14; TEMP 35.8; O2SAT 94–99; BMI 26.3
--- NOTE | 2024-01-18 20:46 | ED_ITS ---
HPI - Abdominal Pain General Chief Complaint: Abdominal Pain Stated Complaint: post chemo/diverticulitis Time Seen by Provider: 01/18/24 20:45 Source: patient Mode of arrival: Ambulatory History of Present Illness HPI narrative: 68-year-old female with history of stage III adenocarcinoma on chemotherapy presents for lower abdominal pain. Patient states that she had a similar episode in October of this year it was diagnosed with diverticulitis. She states that due to numerous allergies to antibiotics infectious Disease was consulted and recommended an antibiotic called omadacycline, which can only be administered IV. Patient has been taking Dilaudid at home for pain without significant relief. Reports significant lower abdominal cramping and spasms. Related Data Home Medications Medication Instructions Recorded Confirmed acetaminophen 325 mg tablet 325 mg PO PRN PRN Pain (Scale 08/19/17 11/19/23 Score 4-6) ##0 cholecalciferol (vitamin D3) 50 4,000 unit PO DAILY 10/23/17 11/19/23 mcg (2,000 unit) capsule calcium carbonate (Calcium 600) 1,200 mg PO DAILY 08/17/19 11/19/23 cyanocobalamin (vitamin B-12) 2,000 mcg DAILY 08/17/19 11/19/23 1,000 mcg tablet (Vitamin B-12) metoprolol succinate 25 mg 12.5 mg PO DAILY 07/05/21 11/19/23 tablet,extended release 24 hr ammonium lactate 12 % lotion applic topical 11/19/23 11/19/23 dexamethasone 4 mg tablet mg PO 11/19/23 11/19/23 famotidine 20 mg tablet (Pepcid) 20 mg PO DAILY 11/19/23 11/19/23 folic acid 1 mg tablet PO 11/19/23 11/19/23 hydromorphone 2 mg tablet mg PO 11/19/23 11/19/23 nitroglycerin 0.4 mg sublingual 0.4 mg sublingual Q5M PRN 11/19/23 11/19/23 tablet ondansetron 8 mg disintegrating 8 mg PO 3XD 11/19/23 11/19/23 tablet Previous Rx's Medication Instructions Recorded levothyroxine 100 mcg tablet 100 mcg PO DAILY #90 tabs 07/22/23 alendronate 35 mg tablet 35 mg PO QWEEK #12 tabs 03/05/24 fluoxetine 10 mg capsule 10 mg PO DAILY #30 caps 10/03/23 rosuvastatin 40 mg tablet 40 mg PO DAILY #90 tabs 11/19/23 Allergies Allergy/AdvReac Type Severity Reaction Status Date / Time amoxicillin [From Augmentin] Allergy Severe Anaphylaxis Verified 11/19/23 14:23 clavulanic acid Allergy Severe Anaphylaxis Verified 11/19/23 14:23 [From Augmentin] Penicillins [PENICILLINS] Allergy Severe Anaphylaxis Verified 11/19/23 14:23 chlorhexidine Allergy Intermediate Hives Verified 01/18/24 20:52 morphine [MORPHINE] Allergy Intermediate Hives Verified 11/19/23 14:23 codeine [CODEINE] Allergy Mild Hives Verified 11/19/23 14:23 metronidazole [From Flagyl] Allergy Verified 11/19/23 14:23 adhesive tape AdvReac Severe Blister Verified 11/19/23 14:23 ciprofloxacin AdvReac Severe Joint Pain Verified 11/19/23 14:23 Patient History Medical History Diverticulosis Depression Laryngitis Hypothyroidism Osteoporosis Lung mass Preventative health care Venous (peripheral) insufficiency Heart attack Poor sleep hygiene Frequent urination Caffeine addiction Tobacco abuse counseling Diverticulitis Urinary leakage Hair thinning Dry skin Hyperlipidemia Hypertension Idiopathic thrombocytopenia purpura Surgical History S/P right rotator cuff repair Hx of heart artery stent History of appendectomy H/O hysterectomy with oophorectomy History of thyroidectomy, subtotal Social History household members: none Smoking Status: Current every day smoker alcohol intake: never substance use type: does not use Smoking Status: Current every day smoker alcohol intake frequency: other Substance Use Type: does not use Exam Initial Vital Signs Initial Vital Signs: Vital Signs Temperature 96.5 F L 01/18/24 20:22 Pulse Rate 96 H 01/18/24 20:22 Respiratory Rate 14 01/18/24 20:22 Blood Pressure 123/69 01/18/24 20:22 Pulse Oximetry 96 01/18/24 20:22 Oxygen Delivery Method Room Air 01/18/24 20:22 Const: Awake, alert, in pain, uncomfortable Cardiac: regular rate, regular rhythm RESP: unlabored, clear bilaterally, no wheezing GI: Soft, generalized tenderness to palpation, particularly left lower quadrant, no rebound Skin: Warm, Dry, intact, no rashes Neuro: AO x3, CN II-XII grossly intact, moves all extremities Course Orders Ordered: ED Orders 01/18/24 20:46 CMP [Comprehensive Metabolic Panel] Stat Lactate (Lactic Acid) Stat Lipase Stat PT [Prothrombin Time INR] Stat UA Complete [Urinalysis and Microscopic] Stat Urine Culture Stat 01/18/24 20:47 CT abdomen pelvis w con Stat 01/18/24 20:48 Chest [XR chest 1V] Stat EKG-12 Lead Stat 01/18/24 21:25 CBC Auto Diff [Complete Blood Count AUTO DIFF] Stat Discontinued Medications Hydromorphone HCl (Hydromorphone 1 Mg Inj) 1 mg IV NOW ONE Stop: 01/18/24 20:47 Last Admin: 01/18/24 20:58 Dose: 1 mg Documented By: Sodium Chloride (Normal Saline 0.9%) 1,000 mls @ 1,000 mls/hr IV BOLUS ONE Stop: 01/18/24 21:45 Last Infusion: 01/18/24 22:00 Dose: Infused Documented By: Admin: 01/18/24 20:58 Dose: 1,000 mls/hr Documented By: Vital Signs Vital signs: Vital Signs - 8 hr 01/18/24 20:22 01/18/24 20:56 01/18/24 20:59 Temperature 96.5 F L Pulse Rate 96 H 109 H 99 H Respiratory Rate 14 Blood Pressure 123/69 Pulse Oximetry 96 95 Oxygen Delivery Method Room Air 01/18/24 20:59 01/18/24 21:00 01/18/24 21:00 Temperature Pulse Rate 96 H Respiratory Rate Blood Pressure 108/58 L 111/61 Pulse Oximetry 94 Oxygen Delivery Method 01/18/24 21:38 01/18/24 21:39 01/18/24 21:39 Temperature Pulse Rate 96 H 95 H Respiratory Rate Blood Pressure 120/72 Pulse Oximetry 95 99 Oxygen Delivery Method 01/18/24 22:09 01/18/24 22:28 01/18/24 22:28 Temperature Pulse Rate 108 H 88 Respiratory Rate Blood Pressure 129/73 Pulse Oximetry 97 98 Oxygen Delivery Method 01/18/24 22:30 01/18/24 22:30 01/18/24 23:00 Temperature Pulse Rate 91 H Respiratory Rate Blood Pressure 135/78 139/83 Pulse Oximetry 96 Oxygen Delivery Method 01/18/24 23:00 01/18/24 23:30 01/18/24 23:30 Temperature Pulse Rate 87 87 Respiratory Rate Blood Pressure 133/75 Pulse Oximetry 96 94 Oxygen Delivery Method Room Air 01/19/24 00:00 01/19/24 00:00 01/19/24 00:30 Temperature Pulse Rate 91 H 101 H Respiratory Rate Blood Pressure 131/71 Pulse Oximetry 96 97 Oxygen Delivery Method 01/19/24 00:30 Temperature Pulse Rate Respiratory Rate 18 Blood Pressure 121/63 Pulse Oximetry Oxygen Delivery Method MDM - Abdominal Pain Differential Diagnosis Differential diagnosis: Likely abdominal pain, acute appendicitis and diverticulitis Lab Data 01/18/24 21:25 01/18/24 20:46 Labs: Lab Results 01/18/24 01/18/24 Range/Units 20:46 21:25 WBC 12.6 H (4.5-11.0) X10^3/uL RBC 2.73 L (4.0-5.2) X10^6/uL Hgb 8.5 L (12.0-16.0) g/dL Hct 25.4 L (36-46) % MCV 93.1 (80-100) fL MCH 31.0 (26-34) PG MCHC 33.4 (30-36) % RDW 16.7 H (11.6-14.8) % Plt Count TNP Neut % (Auto) 76.6 H (50-75) % Lymph % (Auto) 11.8 L (25-40) % [place] % (Auto) 11.4 (3-14) % Eos % (Auto) 0.0 L (2-4) % Baso % (Auto) 0.2 (0-2) % Neut # (Auto) 9600 H (3229-2352) /uL Lymph # (Auto) 1500 (0509-9112) /uL [place] # (Auto) 1400 H (0-900) /uL Eos # (Auto) 0 (0-450) /uL Baso # (Auto) 0 (0-100) /uL Platelet Estimate Decreased on smear Clumped Platelets RBC Morphology Normal morphology PT 12.5 (9.4-12.5) SECONDS INR 1.1 (0.9-1.3) Sodium 134 L (137-145) mmol/L Potassium 4.0 (3.4-5.1) mmol/L Chloride 104 (98-107) mmol/L Carbon Dioxide 25 (22-32) mmol/L BUN 11 (7-17) mg/dL Creatinine 0.97 (0.52-1.04) mg/dL Estimated GFR > 60 (>60) mL/min BUN/Creatinine Ratio 11.3 (6-22) Glucose 121 H (80-110) mg/dL Lactate 1.1 (0.7-2.1) mmol/L Calcium 8.9 (8.4-10.2) mg/dL Total Bilirubin 0.8 (0.2-1.3) mg/dL AST 26 (14-36) IU/L ALT 39 H (<35) IU/L Alkaline Phosphatase 84 (38-126) U/L Total Protein 6.7 (6.3-8.2) g/dL Albumin 3.8 (3.5-5.0) g/dL Globulin 2.9 (1.7-4.1) g/dL Albumin/Globulin Ratio 1.3 (1.0-2.8) Lipase 32 (23-300) U/L Urine Color Yellow Urine Appearance Sl cloudy Urine pH 6.0 (4.5-8.0) Ur Specific [place] 1.015 (1.000-1.035) Urine Protein 1+ H (Negative) Urine Glucose (UA) Negative (Negative) g/dL Urine Ketones 1+ H (NEGATIVE) Urine Occult Blood 3+ H (Negative) Urine Nitrate Positive H (Negative) Urine Bilirubin Negative (NEGATIVE) Urine Urobilinogen 1.0 (0.2) E.U./dL Ur Leukocyte Esterase Trace H (NEGATIVE) Urine RBC 5-10/hpf H (0-5/HPF) Urine WBC 10-30/hpf H (0-5/HPF) Ur Squamous Epith Cells 1-5 /hpf (0-5/HPF) Urine Bacteria Many (>30) H (None) Ur Culture Indicated? Specimen cultured Vol Urine Centrifuged 10ml (spun) Point of care testing: Urine Dip Bedside Urine Glucose Negative Bedside Urine Bilirubin - Negative Bedside Urine Ketone +/- 5 Urine Specific [place] 1.015 Bedside Urine Occult Blood +++ Bedside Urine pH 6.0 Bedside Urine Protein + 30 Bedside Urine Urobilinogen - Negative Bedside Urine Nitrite - Negative Bedside Urine Leukocytes - Negative Esterase Imaging Data CT scan - abdomen/pelvis: Radiologist's Impression: PROCEDURE: CT ABDOMEN PELVIS W CON INDICATIONS: LEFT ABD PAIN, RECENT DIVERTICULITIS TECHNIQUE: After the administration of intravenous contrast, axial sections acquired from the lung bases to the pubic symphysis. Coronal and sagittal reformats were performed. For radiation dose reduction, the following was used: automated exposure control, adjustment of mA and/or kV according to patient size. COMPARISON: [facility], CT, CT ABDOMEN PELVIS WITH CONTRAST, 11/06/2023, 9:29. [facility], CT, CT ABDOMEN PELVIS W CON, 05/16/2023, 10:18. FINDINGS: Image quality: Diagnostic. Lower Chest: No significant findings. ABDOMEN: Liver: No solid mass. Gallbladder: No radiopaque gallstones or wall thickening. Biliary ducts: No biliary dilation. Pancreas: No ductal dilation. Spleen: Size is within normal limits. Adrenal Glands: No adrenal nodules. Kidneys and Ureters: No hydronephrosis. No solid mass. No complex renal cystic lesion which requires follow up. Stomach and Bowel: Diverticulosis. Diverticulitis involving the sigmoid colon in the left pelvis. There is thickening of the sigmoid colon. No fluid collection. No free air. The appendix is not seen. Peritoneum: No ascites. No pneumoperitoneum. Ventral Wall: No significant ventral hernia. Abdominal Nodes: No retroperitoneal or mesenteric adenopathy by size criteria. Vessels: Aorta and inferior vena cava are normal in size. Circumferential calcified atherosclerotic plaque. PELVIS: Pelvic Organs: Uterus is absent. Bladder: No bladder wall thickening, accounting for underdistention. Pelvic Nodes: No enlarged lymph nodes. Miscellaneous: No inguinal hernias are seen. Clips at the right groin. Bones: No aggressive osseous abnormality. IMPRESSION: Sigmoid colon diverticulitis. No abscess. Thickening of the sigmoid colon. Recommend follow-up colonoscopy if not recently performed. Dictated by: Akhil Plummer M.D. on 01/18/2024 at 23:33 Approved by: Akhil Plummer M.D. on 01/18/2024 at 23:38 MDM Narrative Medical decision making narrative: Abdominal pain similar to previous episodes of diverticulitis. Unfortunately patient has numerous sensitivities to antibiotics, and states that infectious Disease recommended a very specific antibiotic called omadacycline, which can only be administered IV. Records obtained from [facility] that confirms patient statement. IV pain medications ordered, labs and imaging ordered Laboratory work reviewed, WBC count 12.6, hemoglobin 8.5, platelet count unable to be measured. Sodium 134, potassium 4.0, creatinine 0.97. CT of the abdomen and pelvis shows sigmoid diverticulitis without perforation. Urinalysis shows positive nitrites and many bacteria. Patient states that she has no urinary symptoms at this time and does not want treatment for this, stating that she would prefer to be treated for the diverticulitis. Unfortunately we do not have the recommended antibiotic for patient's condition. 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 Discussed case with infectious disease doctor at [facility], who stated that it would be reasonable to transfer patient to [facility] so that she could get her antibiotics. Unfortunately [facility] does not have any available hospital beds to accept patient, and to transfer we would have to look at other facilities. Patient informed of lab and imaging findings as well as antibiotic situation and current weight for [facility] service. Patient states that she would like to go home at this time. She states that [facility] is open tomorrow morning at 7:00 a.m. and she will call them to see if they can arrange the antibiotic for her. If not then she says that she will go to [facility] to see if she can arrange for this antibiotic to be administered. Discussed strict ED return precautions with the patient at bedside. Discharge Plan Departure Patient Disposition: Home Clinical Impression: Diverticulitis large intestine Instructions: DI for Diverticulitis Activity Restrictions/Additional Instructions: Your CT today showed that you have diverticulitis. Unfortunately due to your numerous sensitivities and allergies we do not have the antibiotic that you had at [facility] selected for you by infectious disease. Call the Infusion Center tomorrow morning to see if they can arrange this antibiotic for you, if not then I recommend that you go to the emergency department again for this medication. Prescriptions: No Action cholecalciferol (vitamin D3) 2,000 unit capsule 4,000 unit PO DAILY acetaminophen 325 MG tablet 325 mg PO PRN PRN (Reason: Pain (Scale Score 4-6)) Qty: 0 levothyroxine 100 mcg tablet 100 mcg PO DAILY Qty: 90 3RF alendronate 35 mg tablet 35 mg PO QWEEK Qty: 12 1RF fluoxetine 10 mg capsule 10 mg PO DAILY Qty: 30 2RF ammonium lactate 12 % lotion topical dexamethasone 4 mg tablet PO famotidine [Pepcid] 20 mg tablet 20 mg PO DAILY folic acid 1 mg tablet PO hydromorphone 2 mg tablet PO nitroglycerin 0.4 mg tablet, sublingual 0.4 mg sublingual Q5M PRN Rx Instructions: do not exceed 3 doses per episode ondansetron 8 mg tablet,disintegrating 8 mg PO 3XD rosuvastatin 40 mg tablet 40 mg PO DAILY Qty: 90 3RF cyanocobalamin (vitamin B-12) [Vitamin B-12] 1,000 mcg Tablet 2,000 mcg DAILY calcium carbonate [Calcium 600] 600 mg calcium (1,500 mg) Tablet 1,200 mg PO DAILY metoprolol succinate 25 mg Tablet Extended Release 24 Hr 12.5 mg PO DAILY Referrals: Gregory Ivy DO [Primary Care Provider] - Stand Alone Forms: Patient Portal/API
--- NOTE | 2024-01-18 20:48 | EKG_ITS ---
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
--- NOTE | 2024-01-18 20:48 | DI.RAD.S_ITS ---
PROCEDURE: XR CHEST 1V INDICATIONS: SEPSIS TECHNIQUE: One view of the chest was acquired. COMPARISON: None. FINDINGS: Surgical changes and devices: Clips at the lower neck. Left-sided port with the catheter tip at the upper 3rd of the SVC. Possible stent overlying the right heart. Lungs and pleura: Lungs are clear. No pleural effusions or pneumothorax. Mediastinum: Mediastinal contours appear normal. Heart size is normal. Bones and chest wall: No suspicious bony lesions. Overlying soft tissues appear unremarkable. IMPRESSION: No acute cardiopulmonary abnormality is seen. Dictated by: Akhil Plummer M.D. on 01/18/2024 at 22:05 Approved by: Akhil Plummer M.D. on 01/18/2024 at 22:06
[2024-01-18] MEDS: HYDROMORPHONE 1 MG INJ IV (20:58)
[2024-01-18] MEDS: SODIUM CHLORIDE 0.9% 1,000 ML 1000 ML IV (20:58)
[2024-01-18 21:04] LABS: INR 1.1 (0.9-1.3); Prothrombin Time 12.5 SECONDS (9.4-12.5)
[2024-01-18 21:07] LABS: Alanine Aminotransferase 39 IU/L (<35); Albumin 3.8 g/dL (3.5-5.0); Albumin Globulin Ratio 1.3 (1.0-2.8); Alkaline Phosphatase 84 U/L (38-126); Aspartate Aminotransferase 26 IU/L (14-36); BUN Creatinine Ratio 11.3 (6-22); Bilirubin Total 0.8 mg/dL (0.2-1.3); Blood Urea Nitrogen 11 mg/dL (7-17); Calcium 8.9 mg/dL (8.4-10.2); Carbon Dioxide 25 mmol/L (22-32); Chloride 104 mmol/L (98-107); Estimated Glomerular Filt Rate > 60 mL/min (>60); Globulin 2.9 g/dL (1.7-4.1); Glucose 121 mg/dL (80-110); HEMOLYSIS < 15 (0-50); Lactate (Lactic Acid) 1.1 mmol/L (0.7-2.1); Lipase 32 U/L (23-300); Sodium 134 mmol/L (137-145); Total Protein 6.7 g/dL (6.3-8.2)
[2024-01-18 21:16] LABS: Appearance Urine UA SL CLOUDY; Bilirubin Urine UA NEGATIVE (NEGATIVE); Color Urine UA YELLOW; Glucose Urine UA NEGATIVE (Negative); Ketones Urine UA 1+ (NEGATIVE); Leukocyte Esterase Urine UA TRACE (NEGATIVE); Nitrite Urine UA POSITIVE (Negative); Occult Blood Urine UA 3+ (Negative); Protein Urine UA 1+ (Negative); Specific Gravity Urine UA 1.015 (1.000-1.035)
[2024-01-18 21:22] LABS: Bacteria Urine Many (>30); Culture Indicated Urine Specimen Cultured; RBC Urine 5-10/HPF (0-5/HPF); Squamous Epithelial Cell Urine 1-5 /HPF (0-5/HPF); Urine Volume 10mL (spun); WBC Urine 10-30/HPF (0-5/HPF)
[2024-01-18 21:40] LABS: Basophils Absolute Auto 0 /uL (0-100); Basophils Percent Auto 0.2 % (0-2); Eosinophils Absolute Auto 0 /uL (0-450); Hematocrit 25.4 % (36-46); Hemoglobin 8.5 g/dL (12.0-16.0); Lymphocytes Absolute Auto 1500 /uL (1100-4500); Lymphocytes Percent Auto 11.8 % (25-40); Mean Corpuscular HGB Conc 33.4 % (30-36); Mean Corpuscular Volume 93.1 fL (80-100); Monocytes Absolute Auto 1400 /uL (0-900); Monocytes Percent Auto 11.4 % (3-14); Neutrophils Absolute Auto 9600 /uL (1500-7000); Neutrophils Percent Auto 76.6 % (50-75); Red Blood Cell Count 2.73 X10^6/uL (4.0-5.2); Red Cell Distribution Width 16.7 % (11.6-14.8); White Blood Cell Count 12.6 X10^3/uL (4.5-11.0)
[2024-01-18 22:07] LABS: Add Manual Diff / Slide Review SLIDE REVIEW; Platelet Estimate Decreased on smear
[2024-01-18 22:10] LABS: RBC Morphology Normal Morphology
[2024-01-19] VITALS: BP 131/71; PULSE 91; O2SAT 96
[2024-01-19 00:30] VITALS: BP 121/63; PULSE 101; RESP 18; O2SAT 97
[2024-01-19] MEDS: HYDROMORPHONE 1 MG INJ IM (01:24)
[2024-01-19 01:26] VITALS: BP 107/69; PULSE 89; RESP 18; O2SAT 96
== END 2024-01-19 01:28 | disposition home or self-care (01) ==
PROVIDERS: Emergency Provider Emergency Medicine; PCP Family Medicine
DX: K57.32 Diverticulitis of large intestine without perforation or abscess without bleeding (principal)
CPT/HCPCS: 36415; 71045; 74177; 80053; 81001; 81003; 83605; 83690; 85025; 85610; 87077; 87086; 87186; 93005; 96361; 96372; 96374; 99284; J1170; Q9967

== ENCOUNTER 2024-01-19 09:44 | Emergency (ER) | payer MEDICARE, OTHER, SELFPAY ==
[2024-01-19] VITALS (9 sets, daily range): BP systolic 106–130; BP diastolic 58–73; PULSE 78–89; RESP 16–21; TEMP 36.8; O2SAT 91–99; BMI 26.3
[2024-01-19 10:36] LABS: Basophils Absolute Auto 0 /uL (0-100); Basophils Percent Auto 0.2 % (0-2); Eosinophils Absolute Auto 0 /uL (0-450); Eosinophils Percent Auto 0.1 % (2-4); Hematocrit 24.9 % (36-46); Hemoglobin 8.4 g/dL (12.0-16.0); Lymphocytes Absolute Auto 1900 /uL (1100-4500); Lymphocytes Percent Auto 15.5 % (25-40); Mean Corpuscular HGB Conc 33.7 % (30-36); Mean Corpuscular Hemoglobin 31.4 PG (26-34); Mean Corpuscular Volume 93.1 fL (80-100); Monocytes Absolute Auto 1400 /uL (0-900); Monocytes Percent Auto 11.3 % (3-14); Neutrophils Absolute Auto 8900 /uL (1500-7000); Neutrophils Percent Auto 72.9 % (50-75); Red Blood Cell Count 2.68 X10^6/uL (4.0-5.2); Red Cell Distribution Width 16.4 % (11.6-14.8); White Blood Cell Count 12.2 X10^3/uL (4.5-11.0)
[2024-01-19 10:44] LABS: Alanine Aminotransferase 33 IU/L (<35); Albumin 3.4 g/dL (3.5-5.0); Albumin Globulin Ratio 1.4 (1.0-2.8); Alkaline Phosphatase 73 U/L (38-126); Aspartate Aminotransferase 23 IU/L (14-36); BUN Creatinine Ratio 10.8 (6-22); Bilirubin Total 0.7 mg/dL (0.2-1.3); Blood Urea Nitrogen 9 mg/dL (7-17); Calcium 8.8 mg/dL (8.4-10.2); Carbon Dioxide 21 mmol/L (22-32); Chloride 104 mmol/L (98-107); Estimated Glomerular Filt Rate > 60 mL/min (>60); Globulin 2.5 g/dL (1.7-4.1); Glucose 98 mg/dL (80-110); HEMOLYSIS < 15 (0-50); Lipase 27 U/L (23-300); Potassium 3.5 mmol/L (3.4-5.1); Sodium 133 mmol/L (137-145); Total Protein 5.9 g/dL (6.3-8.2)
[2024-01-19 10:52] LABS: Add Manual Diff / Slide Review SLIDE REVIEW
[2024-01-19 11:00] LABS: Anisocytosis 1+; Platelet Estimate Decr
--- NOTE | 2024-01-19 11:41 | ED.RECABL ---
HPI - Recheck/Abnormal Lab/Rx General Chief Complaint: Recheck/Abnormal Lab/Rx Stated Complaint: Abd Pain, diverticulitis? Time Seen by Provider: 01/19/24 10:00 Source: patient, RN notes reviewed and old records reviewed Limitations: no limitations History of Present Illness HPI narrative: 68-year-old female with a history of stage III adenocarcinoma chemotherapy presents for abdominal pain and known diverticulitis. Patient was seen last night about 12 hours prior was diagnosed with diverticulitis without perforation or abscess. She is numerous antibiotics to allergies. She has been seen by infectious disease in the past and they were consulted recommended an antibiotic called omadacycline available IV. Patient reports no fevers, no chest pain or shortness of breath some intermittent nausea, she has persistent pain she states not significantly worse in the last night. She states pain had improved before she left and has taken some oral pain medication at but has not had persistent relief. States she had a little bit of blood in her stool for the last several days. No diarrhea constipation otherwise, no urinary symptoms. Related Data Home Medications Medication Instructions Recorded Confirmed acetaminophen 325 mg tablet 325 mg PO PRN PRN Pain (Scale 08/19/17 11/19/23 Score 4-6) ##0 cholecalciferol (vitamin D3) 50 4,000 unit PO DAILY 10/23/17 11/19/23 mcg (2,000 unit) capsule calcium carbonate (Calcium 600) 1,200 mg PO DAILY 08/17/19 11/19/23 cyanocobalamin (vitamin B-12) 2,000 mcg DAILY 08/17/19 11/19/23 1,000 mcg tablet (Vitamin B-12) metoprolol succinate 25 mg 12.5 mg PO DAILY 07/05/21 11/19/23 tablet,extended release 24 hr ammonium lactate 12 % lotion applic topical 11/19/23 11/19/23 dexamethasone 4 mg tablet mg PO 11/19/23 11/19/23 famotidine 20 mg tablet (Pepcid) 20 mg PO DAILY 11/19/23 11/19/23 folic acid 1 mg tablet PO 11/19/23 11/19/23 hydromorphone 2 mg tablet mg PO 11/19/23 11/19/23 nitroglycerin 0.4 mg sublingual 0.4 mg sublingual Q5M PRN 11/19/23 11/19/23 tablet ondansetron 8 mg disintegrating 8 mg PO 3XD 11/19/23 11/19/23 tablet Previous Rx's Medication Instructions Recorded levothyroxine 100 mcg tablet 100 mcg PO DAILY #90 tabs 07/22/23 alendronate 35 mg tablet 35 mg PO QWEEK #12 tabs 08/19/23 fluoxetine 10 mg capsule 10 mg PO DAILY #30 caps 10/03/23 rosuvastatin 40 mg tablet 40 mg PO DAILY #90 tabs 11/19/23 Allergies Allergy/AdvReac Type Severity Reaction Status Date / Time amoxicillin [From Augmentin] Allergy Severe Anaphylaxis Verified 11/19/23 14:23 clavulanic acid Allergy Severe Anaphylaxis Verified 11/19/23 14:23 [From Augmentin] Penicillins [PENICILLINS] Allergy Severe Anaphylaxis Verified 11/19/23 14:23 chlorhexidine Allergy Intermediate Hives Verified 01/18/24 20:52 morphine [MORPHINE] Allergy Intermediate Hives Verified 11/19/23 14:23 codeine [CODEINE] Allergy Mild Hives Verified 11/19/23 14:23 metronidazole [From Flagyl] Allergy Verified 11/19/23 14:23 adhesive tape AdvReac Severe Blister Verified 11/19/23 14:23 ciprofloxacin AdvReac Severe Joint Pain Verified 11/19/23 14:23 Review of Systems Review of Systems ROS Unobtainable: All systems reviewed & are unremarkable except as noted in HPI and below Patient History Medical History Diverticulosis Depression Laryngitis Hypothyroidism Osteoporosis Lung mass Preventative health care Venous (peripheral) insufficiency Heart attack Poor sleep hygiene Frequent urination Caffeine addiction Tobacco abuse counseling Diverticulitis Urinary leakage Hair thinning Dry skin Hyperlipidemia Hypertension Idiopathic thrombocytopenia purpura Surgical History S/P right rotator cuff repair Hx of heart artery stent History of appendectomy H/O hysterectomy with oophorectomy History of thyroidectomy, subtotal Social History household members: none Smoking Status: Former smoker alcohol intake: never substance use type: does not use Smoking Status: Former smoker alcohol intake frequency: other Substance Use Type: does not use Exam Narrative Exam Narrative: GENERAL: Alert and oriented x three, female in moderate distress HEENT: Head normocephalic, atraumatic, EOMI, pupils reactive, face symmetric, moist mucous membranes NECK: Supple, full range of motion CARDIOVASCULAR: Regular rate and rhythm without murmurs, rubs or gallops. RESPIRATORY: Breath sounds equal bilaterally, no wheezes rales or rhonchi. ABDOMEN: Soft, generalized tenderness, nondistended. Normoactive bowel sounds all 4 quadrants. No guarding or rebound, rigidity, no mass : No CVA tenderness EXTREMITIES: Normal range of motion, no clubbing or edema. Neurovascularly intact NEUROLOGICAL: Cranial nerves II through XII grossly intact. Moving all extremities SKIN: Warm, dry, no petechiae, no rashes or lesions. Initial Vital Signs Initial Vital Signs: Vital Signs Temperature 98.2 F 01/19/24 09:50 Pulse Rate 88 01/19/24 09:50 Respiratory Rate 18 01/19/24 09:50 Blood Pressure 130/73 01/19/24 09:50 Pulse Oximetry 99 01/19/24 09:50 Oxygen Delivery Method Room Air 01/19/24 09:50 Course Orders Ordered: Discontinued Medications Hydromorphone HCl (Hydromorphone 1 Mg Inj) 1 mg IV NOW ONE Stop: 01/19/24 11:46 Last Admin: 01/19/24 11:51 Dose: 1 mg Documented By: MARIA ALEJANDRA Hydromorphone HCl (Hydromorphone 1 Mg Inj) 1 mg IV NOW ONE Stop: 01/19/24 16:16 Last Admin: 01/19/24 16:20 Dose: 1 mg Documented By: MARLON Sodium Chloride (Normal Saline 0.9%) 1,000 mls @ 1,000 mls/hr IV BOLUS ONE Stop: 01/19/24 13:00 Last Infusion: 01/19/24 13:47 Dose: Infused Documented By: Admin: 01/19/24 12:23 Dose: 1,000 mls/hr Documented By: MARLON Ondansetron HCl (Ondansetron 4 Mg/2 Ml Inj) 4 mg IV NOW ONE Stop: 01/19/24 11:46 Last Admin: 01/19/24 11:51 Dose: 4 mg Documented By: MARIA ALEJANDRA Vital Signs Vital signs: Vital Signs - 8 hr 01/19/24 09:50 01/19/24 09:55 01/19/24 10:00 Temperature 98.2 F Pulse Rate 88 89 Respiratory Rate 18 21 Blood Pressure 130/73 113/68 Pulse Oximetry 99 97 Oxygen Delivery Method Room Air 01/19/24 10:00 01/19/24 11:08 01/19/24 11:30 Temperature Pulse Rate 82 85 81 Respiratory Rate 16 18 20 Blood Pressure 108/58 L 120/67 Pulse Oximetry 96 95 98 Oxygen Delivery Method Room Air Room Air 01/19/24 13:02 01/19/24 14:03 01/19/24 14:28 Temperature Pulse Rate 83 78 Respiratory Rate 18 Blood Pressure 106/60 109/63 Pulse Oximetry 92 91 91 Oxygen Delivery Method Room Air Room Air Room Air MDM - Recheck/Abnormal Lab/Rx Lab Data 01/19/24 10:20 01/19/24 10:20 Labs: Lab Results 01/19/24 Range/Units 10:20 WBC 12.2 H (4.5-11.0) X10^3/uL RBC 2.68 L (4.0-5.2) X10^6/uL Hgb 8.4 L (12.0-16.0) g/dL Hct 24.9 L (36-46) % MCV 93.1 (80-100) fL MCH 31.4 (26-34) PG MCHC 33.7 (30-36) % RDW 16.4 H (11.6-14.8) % Plt Count TNP Neut % (Auto) 72.9 (50-75) % Lymph % (Auto) 15.5 L (25-40) % Jerome % (Auto) 11.3 (3-14) % Eos % (Auto) 0.1 L (2-4) % Baso % (Auto) 0.2 (0-2) % Neut # (Auto) 8900 H (6660-7654) /uL Lymph # (Auto) 1900 (1518-9583) /uL Jerome # (Auto) 1400 H (0-900) /uL Eos # (Auto) 0 (0-450) /uL Baso # (Auto) 0 (0-100) /uL Platelet Estimate Decr Plt Morphology Comment RBC Morphology See below Anisocytosis 1+ H Sodium 133 L (137-145) mmol/L Potassium 3.5 (3.4-5.1) mmol/L Chloride 104 (98-107) mmol/L Carbon Dioxide 21 L (22-32) mmol/L BUN 9 (7-17) mg/dL Creatinine 0.83 (0.52-1.04) mg/dL Estimated GFR > 60 (>60) mL/min BUN/Creatinine Ratio 10.8 (6-22) Glucose 98 (80-110) mg/dL Calcium 8.8 (8.4-10.2) mg/dL Total Bilirubin 0.7 (0.2-1.3) mg/dL AST 23 (14-36) IU/L ALT 33 (<35) IU/L Alkaline Phosphatase 73 (38-126) U/L Total Protein 5.9 L (6.3-8.2) g/dL Albumin 3.4 L (3.5-5.0) g/dL Globulin 2.5 (1.7-4.1) g/dL Albumin/Globulin Ratio 1.4 (1.0-2.8) Lipase 27 (23-300) U/L Imaging Data Abdominal x-ray: Radiologist's Impression: [address] [address] XRay Report Signed Patient: Aurea Burkett MR#: [id number] : 1955 Acct:[id number] Age/Sex: 68 / F Date of Service: 01/19/24 Loc: ED Accession Number: [id number] Procedure: XR abdomen min 2V Ordering Provider: Bethanie Tiwari D.O. PROCEDURE: XR ABDOMEN MIN 2V INDICATIONS: return, abd pain, diveriticulitis on Ct, r/o free air TECHNIQUE: 2 views of the abdomen were acquired. COMPARISON: [facility], CT, CT ABDOMEN PELVIS W CON, 01/18/2024, 21:27. [facility], CR, XR ABDOMEN 1V, 05/16/2023, 9:24. FINDINGS: Surgical changes and devices: None. Bowel: No pneumoperitoneum. The bowel gas pattern is abnormal with generalized colonic obstipation through the abdomen and pelvis. Soft tissues: No masses; visualized solid organ contours appear normal in size. No suspicious abdominal calcifications. Bones: No suspicious bony abnormalities. IMPRESSION: Generalized colonic obstipation without clear evidence of obstruction. No free air seen. Please also refer to CT scanning 1 day ago. Dictated by: Jermaine Liu M.D. on 01/19/2024 at 12:33 Approved by: Jermaine Liu M.D. on 01/19/2024 at 12:33 [facility] Narrative Medical decision making narrative: 68-year-old female with known diverticulitis on CT last night. No perforation or abscess at that time. Patient's vitals here overall appropriate no signs of sepsis Patient's white count is 12.2 was 12.6 last night hemoglobin 8.4 was 8.5 last night with platelets of clumped. Sodium 133 potassium 3.5 chloride 104 CO2 of 21 BUN 9 creatinine 0.83 total protein 5.9 albumin 3.4. Lipase is 27. Patient had CT abdomen pelvis last night, patient had sigmoid colon diverticulitis without abscess thickening of the colon recommended follow up colonoscopy, no other acute changes appreciated. Dr. Reardon's note states that she had called Infectious Disease who recommended Omndacycline which is only available IV by infectious disease at [facility]. They recommended transfer if unavailable at our facility. Our coordinator was contacted would take more than 24 hours for us to receive and I confirmed this again today with the daytime coordinator. Patient had elected to return home with a goal to call the infusion clinic or return to [facility]. She states was too painful to drive to [facility] so she returned here this morning. Patient's abdominal exam she is tender but no rebound so did not repeat CT but did have abdominal x-ray repeated. No free air. Spoke with coordinator at [facility] potential beds later today, she is verifying they have the antibiotic available. They asked but we speak with Infectious Disease I spoke with Dr. Guzman Méndez he is familiar with the patient from last night talking to Dr. Reardon. Still agreeable for transfer for the IV antibiotic as patient had left last night and it was not ordered so would take an additional 24 hours. Waiting call back from hospitalist beds are available. Spoke with Dr. Armijo hospialist who accepts for transfer. Plan for S transport patient did receive fluids. She was being transferred for availability of IV antibiotics otherwise would have been discharged home on oral antibiotics. Discharge Plan Departure Patient Disposition: [facility] Clinical Impression: Diverticulitis, Drug allergy, multiple Prescriptions: No Action cholecalciferol (vitamin D3) 2,000 unit capsule 4,000 unit PO DAILY acetaminophen 325 MG tablet 325 mg PO PRN PRN (Reason: Pain (Scale Score 4-6)) Qty: 0 levothyroxine 100 mcg tablet 100 mcg PO DAILY Qty: 90 3RF alendronate 35 mg tablet 35 mg PO QWEEK Qty: 12 1RF fluoxetine 10 mg capsule 10 mg PO DAILY Qty: 30 2RF ammonium lactate 12 % lotion topical dexamethasone 4 mg tablet PO famotidine [Pepcid] 20 mg tablet 20 mg PO DAILY folic acid 1 mg tablet PO hydromorphone 2 mg tablet PO nitroglycerin 0.4 mg tablet, sublingual 0.4 mg sublingual Q5M PRN Rx Instructions: do not exceed 3 doses per episode ondansetron 8 mg tablet,disintegrating 8 mg PO 3XD rosuvastatin 40 mg tablet 40 mg PO DAILY Qty: 90 3RF cyanocobalamin (vitamin B-12) [Vitamin B-12] 1,000 mcg Tablet 2,000 mcg DAILY calcium carbonate [Calcium 600] 600 mg calcium (1,500 mg) Tablet 1,200 mg PO DAILY metoprolol succinate 25 mg Tablet Extended Release 24 Hr 12.5 mg PO DAILY Referrals: Gregory Ivy, [Primary Care Provider] -
--- NOTE | 2024-01-19 11:45 | DI.RAD.S_ITS ---
PROCEDURE: XR ABDOMEN MIN 2V INDICATIONS: return, abd pain, diveriticulitis on Ct, r/o free air TECHNIQUE: 2 views of the abdomen were acquired. COMPARISON: [facility], CT, CT ABDOMEN PELVIS W CON, 01/18/2024, 21:27. [facility], CR, XR ABDOMEN 1V, 05/16/2023, 9:24. FINDINGS: Surgical changes and devices: None. Bowel: No pneumoperitoneum. The bowel gas pattern is abnormal with generalized colonic obstipation through the abdomen and pelvis. Soft tissues: No masses; visualized solid organ contours appear normal in size. No suspicious abdominal calcifications. Bones: No suspicious bony abnormalities. IMPRESSION: Generalized colonic obstipation without clear evidence of obstruction. No free air seen. Please also refer to CT scanning 1 day ago. Dictated by: Jermaine Liu M.D. on 01/19/2024 at 12:33 Approved by: Jermaine Liu M.D. on 01/19/2024 at 12:33
[2024-01-19] MEDS: HYDROMORPHONE 1 MG INJ IV ×2 (11:51→16:20)
[2024-01-19] MEDS: ONDANSETRON 4 MG/2 ML INJ IV (11:51)
[2024-01-19] MEDS: SODIUM CHLORIDE 0.9% 1,000 ML 1000 ML IV (12:23)
== END 2024-01-19 16:32 | disposition short-term general hospital (02) ==
PROVIDERS: Emergency Provider Emergency Medicine; PCP Family Medicine
DX: K57.92 Diverticulitis of intestine, part unspecified, without perforation or abscess without bleeding (principal); Z88.9 Allergy status to unspecified drugs, medicaments and biological substances
CPT/HCPCS: 36415; 74019; 80053; 83690; 85025; 96361; 96374; 96375; 96376; 99284; J1170; J2405

== ENCOUNTER → 2024-09-02 08:51 | Outpatient (CLI) | payer MEDICARE, OTHER, SELFPAY ==
[2024-09-02 09:08] LABS: Add Manual Diff / Slide Review NO; Basophils Absolute Auto 100 /uL (0-100); Basophils Percent Auto 1.4 % (0-2); Eosinophils Absolute Auto 100 /uL (0-450); Eosinophils Percent Auto 1.7 % (2-4); Hemoglobin 13.6 g/dL (12.0-16.0); Lymphocytes Absolute Auto 2800 /uL (1100-4500); Lymphocytes Percent Auto 38.3 % (25-40); Mean Corpuscular HGB Conc 33.3 % (30-36); Mean Corpuscular Hemoglobin 32.3 PG (26-34); Mean Corpuscular Volume 97.1 fL (80-100); Monocytes Absolute Auto 800 /uL (0-900); Monocytes Percent Auto 10.6 % (3-14); Neutrophils Absolute Auto 3600 /uL (1500-7000); Red Blood Cell Count 4.22 X10^6/uL (4.0-5.2); Red Cell Distribution Width 14.3 % (11.6-14.8); White Blood Cell Count 7.4 X10^3/uL (4.5-11.0)
[2024-09-02 10:39] LABS: Cholesterol 152 mg/dL (140-199); HDL Cholesterol 57 mg/dL (40-60); LDL Cholesterol Calculated 73 mg/dL (<100); Triglycerides 112 mg/dL (35-150)
[2024-09-02 10:54] LABS: Free T4, Direct Thyroxine 1.43 ng/dL (0.78-2.19)
== END ==
LOC: LAB 08:53
PROVIDERS: PCP Family Medicine; Referring Provider Internal Medicine Cardiovascular Disease; Visit Provider Internal Medicine Cardiovascular Disease
DX: E78.00 Pure hypercholesterolemia, unspecified (principal); L65.9 Nonscarring hair loss, unspecified; I10 Essential (primary) hypertension; E89.0 Postprocedural hypothyroidism
CPT/HCPCS: 36415; 80061; 84439; 84443; 85025

== ENCOUNTER → 2025-06-03 16:15 | Outpatient (CLI) | payer MEDICARE, OTHER, SELFPAY ==
--- NOTE | 2025-06-03 16:17 | DI.MG.S_ITS ---
MM screening mammo BI: 06/03/2025. BI-RADS: 1 CLINICAL: 70-year old female for bilateral screening mammogram. Tyrer-Cuzick lifetime risk of 1.2%. No personal or first-degree family history of breast cancer. PRIOR EXAMS 08/02/2023, 06/26/2019, 05/16/2016. MAMMOGRAPHY TECHNIQUE: 2D and 3D (tomosynthesis) digital mammographic views obtained, with additional images as needed for full coverage. Current study was also evaluated with a Computer Aided Detection (CAD) system. DENSITY B. There are scattered areas of fibroglandular density. MAMMOGRAPHY FINDINGS Bilateral: No suspicious mass, asymmetry, microcalcification, or other abnormality seen. IMPRESSION: * No evidence of malignancy. RECOMMENDATIONS Bilateral * Annual screening mammography. OVERALL ASSESSMENT CATEGORY BI-RADS-1: Negative. [employer] recommends annual screening mammography beginning at age 40 for women with average risk of breast cancer. ELECTRONICALLY SIGNED: Cash Pino M.D. on 06/07/2025 at 11:03:10 AM PT Interpreting Station ID: [id number]
== END ==
LOC: MAMMO 16:16
PROVIDERS: PCP Family Medicine; Referring Provider Family Medicine; Visit Provider Family Medicine
DX: Z12.31 Encounter for screening mammogram for malignant neoplasm of breast (principal)
CPT/HCPCS: 77063; 77067